=== PATIENT | female | born 1940 | race Caucasian/White ===

== ENCOUNTER 2017-06-15 07:00 | Outpatient (RCR) | payer MEDICARE, SELFPAY ==
--- NOTE | 2017-05-23 09:19 | HP.PTEVAL_ITS ---
Patient's Visit Information MOISES RAO is a 76 year old F referred to Physical Therapy by JYOTHI Yusuf.CMORRI with a diagnosis of Biceps Strain. Date of Evaluation: 05/23/17 Physical Therapist: Jenny Tavarez - Visit Plan Frequency: 2x /Week Duration: 4 Weeks Plan: Focus on scapular s/s and posture- update and revise HEP - Subjective Subjective: Fell Apr 24- hit her head and landed on her right arm- a long time ago she had popped the biceps off but they didnt do anything about it. [facility] and they didn't feel that she needed x-rays. Agg: overhead and behind, lifting something heavy Worst: 09/02 Best: 04/04 Eases: stop doing what she is doing. Pain diminishes immediatly. Sleep: disturbed- hard to get comfortable. Does not take Ibuprofen secondary to brain bleeds. Right hand dominate. Pain is located in the biceps/triceps described as dull and achy. Does not radiate past the elbow or into the neck. No increase in PARNELL , blurred vision, dizziness. no change in finger dexterity. No N/T. Comes to [facility] 6 times a week- TM and then the strength workout (pushups, plank, glut bridge , spider lunge, plank tap, squat, side lunge, squat jump, front lunge, single leg lift, reverse lunge, walkout). Patient is very active. PMHx: a-fib, brain bleeds Meds: Paxil, Simvastin, Fleconaid, Metroprolol - Objective Posture: FH, RS, increased kyphosis. Gait: no deviation noted. Palpation: tender along upper trap from the occiput to the tip of the acromion, along the medial border of the scapula, biceps, triceps and felt clicking with the biceps in the bicipital groove. ROM: cervical: WNL, Shoulder: Flexion: 160 degrees with pain, Abduction: 180 degrees with pain at end range. IR: WNL with pain at end range, ER: 60 degrees. Strength: Core: fair minus, Shoulder: 4/5 with pain in all directions. Elbow: 4+/5 with pain. Special Test: empty can: positive, Impingment: positive - Goals Goal 1:: Patient will be I with HEP and progression Goal Time Frame: 4-6 Weeks Goal 2:: Patient will demo full AROM of the right UE where deficit with 0/10 pain Goal Time Frame: 4-6 Weeks Goal 3:: patinet will maintain proper posture t/o tx session to demo increased scap s/s. Goal Time Frame: 4-6 Weeks - Rehabilitation Potential Physical Therapy Diagnosis: Patient presents with hypomobility- she has decreased painfree ROM, strength and muscular endurance leading to poor posture and increased pain with ADL's. Rehabilitation Potential: Fair - Anticipated Interventions Patient/Client Instruction: Educate patient on: Benefits of Fitness Program For the Purpose of:: To improve performance and independence with ADL's Therapeutic Exercise to Include: Strength training, Endurance training, Body mechanics, Postural training, Passive ROM, Active ROM, Scapular Strength/ Stabilization For the Purpose of:: To improve muscle performance and motor function TENS: Yes Cryotherapy (ice pack, ice massage): Yes Thermo therapy (hot pack): Yes Ultrasound (thermal/non thermal): Yes For the Purpose of:: To decrease pain Thank you for the opportunity to evaluate your patient. For Medicare and Medicare HMO plans, please review the plan of care and approve it. It will need to be FAXED BACK to us at [phone] for Medicare purposes. Please let me know if there are questions or concerns regarding this plan of care. Physician Signature: Date:
--- NOTE | 2017-06-15 07:18 | HP.PTDCSUM_ITS ---
HP - PT D/C Summary It has been my pleasure to treat MOISES RAO under orders from JYOTHI Yusuf, PA.CMORRI for the diagnosis of Biceps Strain for a total of 7 visit(s). Discharge Date: Please see the following information for a summary of their discharge status. - Subjective Subjective: Patient reports that she is doing great- very little pain and is happy about the exercises - Overall Improvement % Improvement: 100 - Objective Objective/Function: Posture: good throughout. rom:WNL in all planes. Palpation : not tender. Strength: Scap: fair plus, Shoulder: 4+/5 Elbow: 5/5 - Goals Goal 1:: Patient will be I with HEP and progression Goal Progress: Goal Met Goal 2:: Patient will demo full AROM of the right UE where deficit with 0/10 pain Goal Progress: Goal Met Goal 3:: patinet will maintain proper posture t/o tx session to demo increased scap s/s. Goal Progress: Goal Met - Plan Plan: Discharget to I HEP (UBE, mid row, lae, add, bilateral er, wall washes, jobes 3 ways) - D/C Information If there are questions or concerns regarding this patient's physical therapy, please feel free to call me at [phone]. Thank you for the referral of this patient. Sincerely, Jenny Tavarez
== END 2017-06-15 09:31 | disposition home or self-care (01) ==
LOC: PT 07:00
PROVIDERS: Family Provider Family Medicine; PCP Family Medicine; Visit Provider Physician Assistant Surgical
DX: S46.211D Strain of muscle, fascia and tendon of other parts of biceps, right arm, subsequent encounter (principal)
CPT/HCPCS: 97110; 97161; 97530

== ENCOUNTER → 2017-07-05 07:31 | Outpatient (CLI) | payer MEDICARE, SELFPAY ==
--- NOTE | 2017-07-05 07:36 | RAD_ITS ---
STUDY: X-RAY - RIGHT FOOT CLINICAL: Great toe pain, fall. TECHNIQUE: 3 view(s) of the foot. COMPARISON: None. FINDINGS: Normal talus, calcaneus, and tarsal bones. Normal visualized subtalar, talonavicular, calcaneocuboid, tarsal and tarsometatarsal articulations. Normal metatarsi. Normal metatarsophalangeal joint of the great toe. Normal tibial and fibular sesamoid bones. Normal interphalangeal joint of the great toe. Normal phalanges of the great toe. Normal second through fifth metatarsophalangeal joints. There is a nondisplaced fracture of the head and diaphysis of the first proximal phalanx. The soft tissue structures are unremarkable. RAD/Foot min 3 Views IMPRESSION: Nondisplaced fracture of the first proximal phalanx. Electronically Signed: Navi Garcia MD at 8:42 EDT Tel , Service support ,
== END ==
PROVIDERS: Family Provider Family Medicine; PCP Family Medicine; Visit Provider Physician Assistant
DX: S90.31XA Contusion of right foot, initial encounter (principal)
CPT/HCPCS: 73630

== ENCOUNTER → 2017-11-29 07:51 | Outpatient (CLI) | payer MEDICARE, SELFPAY | PROVIDERS: Family Provider Family Medicine; PCP Family Medicine; Visit Provider Family Medicine | DX: Z12.31 Encounter for screening mammogram for malignant neoplasm of breast (principal) | CPT/HCPCS: 77063; 77067 ==

== ENCOUNTER → 2018-04-01 09:58 | Outpatient (CLI) | payer MEDICARE, SELFPAY ==
[2018-04-01 12:04] LABS: Absolute Lymphocyte Count 2.02 X10^3/ul (0.83-4.51); Absolute Neutrophil Count 3.7 X10^3/uL (2.0-7.7); Anion Gap 8 (5-15); BUN 15 mg/dL (7-18); BUN/Creat Ratio 23.9 RATIO (10-20); Basophil# 0.03 X10^3/uL; Basophil% 0.5 % (0-1); Calcium,Total 8.8 mg/dL (8.5-10.1); Chloride 109 mmol/L (98-107); Cholesterol 180 mg/dL (200); Creatinine, Serum 0.63 mg/dL (0.55-1.02); EST Glomerular Filtration Rate 98 mL/min (>60); Eosinophil# 0.07 X10^3/uL; Eosinophils% 1.1 % (0-5); Est Glom Filt Rate - Afr Amer 118 mL/min (>60); Glucose 90 mg/dL (74-106); Hematocrit 39.4 % (37-47); Hemoglobin 12.5 g/dl (12.0-15.0); High Density Lipoprotein 59 mg/dL; Lymphocyte # 2.02 X10^3/ul (4.0); Lymphocyte % 31.5 % (19-41); Mean Corp Hgb Conc 31.7 g/gl (32-36); Mean Corpuscular Hgb 30.6 pg (27.0-32.0); Mean Corpuscular Volume 96.3 fL (81-99); Mean Platelet Vol. 9.3 fl (6.2-12.0); Monocyte# 0.56 X10^3/uL; Monocyte% 8.7 % (0-10); Neutrophil # 3.73 X10^3/uL (2.7-7.7); Platelet Count 299 K/mm3 (150-450); Potassium 4.5 mmol/L (3.5-5.1); RBC Distribution Width CV 13.2 % (11.6-14.6); RBC Distribution Width SD 45.5 fl (35.1-43.9); Red Blood Count 4.09 M/mm3 (4.2-5.4); Sodium Level 143 mmol/L (136-145); Triglycerides 134 mg/dL; Very Low Density Lipoprotein 27 mg/dL (5-40); White Blood Count 6.4 K/mm3 (4.4-11.0)
[2018-04-01 12:11] LABS: Vitamin D,25 Hydroxy 51.8 ng/mL (29.95-100.01)
[2018-04-01 12:13] LABS: POSITIVE COUNT NO; POSITIVE DIFFERENTIAL NO; POSITIVE MORPHOLOGY NO
== END ==
PROVIDERS: Family Provider Family Medicine; PCP Family Medicine; Visit Provider Family Medicine
DX: I48.91 Unspecified atrial fibrillation (principal); E55.9 Vitamin D deficiency, unspecified; E78.00 Pure hypercholesterolemia, unspecified
CPT/HCPCS: 36415; 80048; 80061; 82306; 85025

== ENCOUNTER → 2018-04-11 08:04 | Outpatient (CLI) | payer MEDICARE, SELFPAY ==
[2018-04-03 12:53] VITALS: BMI 21.9
--- NOTE | 2018-04-11 08:18 | BD_ITS ---
STUDY: DUAL ENERGY X-RAY ABSORPTIOMETRY / DXA REASON FOR EXAM: Female, 77 years old. The patient is postmenopausal. Loss of height. TECHNIQUE: Bone Mineral Density (BMD) measurements of lumbar spine and bilateral hips were obtained. COMPARISON: Comparison is made with prior examination dated September 06, 2011. FINDINGS: Lumbar Spine (L1-L4): g/cm2 (1.141) / T-score (-0.5) / Z-score (1.3) Findings are suggestive of normal bone density with a low fracture risk. Left Femur Total: g/cm2 (0.962) / T-score (-0.4) / Z-score (1.5) Left Femoral Neck: g/cm2 (1.007) / T-score (-0.2) / Z-score (1.8) Right Femur Total: g/cm2 (0.925) / T-score (-0.7) / Z-score (1.2) Right Femoral Neck: g/cm2 (1.016) / T-score (-0.2) / Z-score (1.8) The T-Scores on the most recent prior examination were: Lumbar Spine (L1-L4): There has been improvement of bone density since the previous examination. Left Femur Total: which represents an improvement of 2.6%. Right Femur Total: which represents an improvement of 0.7%. BD/Dexa Bone Density Study IMPRESSION: The patient is considered normal as outlined below according to World Matt Organization (WHO) criteria with a low fracture risk. There has been improvement of bone density since the previous examination. Reference Information: The T-score is the number of standard deviations above or below the standard which is normal for young adults at their peak bone mineral density. The World Health Organization (WHO) interprets the T-scores as follows: Above -1 Normal bone density Between -1 and -2.5 Osteopenia Equal to / or below -2.5 Osteoporosis As a practical clinical guideline, osteopenia may be graded as follows: Mild -1 through -1.5 Moderate -1.6 through -2.0 Severe -2.1 through -2.4 The Z-score is the number of standard deviations above or below age-matched controls. A Z-score of less than -1.5 would be considered abnormal. References: 1. NIH Osteoporosis and Related Bone Diseases http://www.osteo.org 2. International Society for Clinical Densitometry http://www.iscd.org 3. National Osteoporosis Foundation http://www.nof.org Electronically Signed: Surya Dexter MD at 8:57 EST Tel [phone], Service support ,
--- OUTSIDE RECORDS SUMMARY | 2018-06-15 20:43 | XMS RPT_ITS ---
:1940 Author Organization OHIP Support Name Relationship Address Phone RAO, BILL Unavailable Unavailable + R Unavailable Unavailable Unavailable PORT HADLOCK, BILL Unavailable [address] + [place] [address] R Unavailable Unavailable Unavailable PORT HADLOCK, BILL Unavailable [address] + [place] [address] R Unavailable Unavailable Unavailable PORT HADLOCK, BILL Unavailable [address] + [place] [address] R Unavailable Unavailable Unavailable PORT HADLOCK, BILL Unavailable [address] + [place] [address] R Unavailable Unavailable Unavailable PORT HADLOCK, BILL Unavailable [address] + [place] [address] R Unavailable Unavailable Unavailable PORT HADLOCK, BILL Unavailable [address] + [place] [address] R Unavailable Unavailable Unavailable PORT HADLOCK, BILL Unavailable [address] + [place] [address] R Unavailable Unavailable Unavailable PORT HADLOCK, BILL Unavailable [address] + [place] [address] R Unavailable Unavailable Unavailable [place] HAD[place], BILL Unavailable . + ., [place] . R Unavailable Unavailable Unavailable PORT HADLOCK, BILL Unavailable [address] + [place] [address] R Unavailable Unavailable Unavailable [place] HAD[place], BILL Unavailable . + ., [place] . R Unavailable Unavailable Unavailable Care Team Providers Name Role Phone Jose Figueroa Attending Unavailable Jose Figueroa Primary Care Unavailable Winter Yang Attending Unavailable Tj Torrez Attending Unavailable Jose Figueroa Referring Unavailable Jose Figueroa Primary Care Unavailable Tj Torrez Attending Unavailable Tj Torrez Referring Unavailable Jose Figueroa Primary Care Unavailable Kurt Robertson Attending Unavailable Jose Figueroa Referring Unavailable Jose Figueroa Attending Unavailable Henry, Jose Primary Care Unavailable Andrés Gregory Attending Unavailable Figueroa, Jose Referring Unavailable Figueroa, Jose Primary Care Unavailable Wyren, Andrés Attending Unavailable Wyles, Andrés Referring Unavailable Figueroa, Jose Primary Care Unavailable Ana, Maty Attending Unavailable Chicorelli, Maty Referring Unavailable Figueroa, Jose Primary Care Unavailable Chicorelli, Maty Attending Unavailable Figueroa, Jose Referring Unavailable Figueroa, Jose Primary Care Unavailable Ailyn, Buckner Attending Unavailable Figueroa, Jose Referring Unavailable Figueroa, Jose Attending Unavailable Figureoa, Jose Primary Care Unavailable PROBLEMS PROBLEMS DATE TYPE CONDITION / CODE ATTENDING STATUS SOURCE 04/11/2018 Unknown Z78.0 - Jose Figueroa Active [place] Asymptomatic Community menopausal state / Hospital Z78.0(ICD-10) Repository 04/03/2018 Unknown E78.5 - Ailyn, Buckner Active [place] Hyperlipidemia, Community unspecified / Hospital E78.5(ICD-10) Repository 04/03/2018 Unknown I48.0 - Paroxysmal Ailyn, Buckner Active [place] atrial Community fibrillation / Hospital I48.0(ICD-10) Repository 04/03/2018 Unknown E78.00 - Pure Ailyn, Kurt Active [place] hypercholesterolem Community ia, unspecified / Hospital E78.00(ICD-10) Repository 07/05/2017 Unknown S90.31XA - Andrés Gregory Active [place] Contusion of right [facility] foot, initial Hospital encounter / Repository S90.31XA(ICD-10) 08/07/2017 Unknown S46.211D - Strain Tj Torrez Active [place] of muscle, fascia Community and tendon of Hospital other parts of Repository biceps, right arm, subsequent encounter / S46.211D(ICD-10) PROCEDURES PROCEDURES No Procedure Records FoundRESULTS RESULTS DEXA BONE DENSITY Observed: 04/11/2018 Status: F Source: [place] STUDY 8:09 AM [facility] REPOSITORY [facility] Imaging Services [address] [place] [address] Dexa Bone Density Study MR#: [id number] Acct: [id number] Name: MOISES RAO Rep #: [id number] : 1940 F 77 From: Surya Dexter MD PCP: Jose Figueroa MD Status: REG CLI Study: Dexa Bone Density Study Date of Exam: 04/11/18 Exam# [id number] Ordering Dr: Jose Figueroa MD STUDY: DUAL ENERGY X-RAY ABSORPTIOMETRY / DXA REASON FOR EXAM: Female, 77 years old. The patient is postmenopausal. Loss of height. TECHNIQUE: Bone Mineral Density (BMD) measurements of lumbar spine and bilateral hips were obtained. COMPARISON: Comparison is made with prior examination dated September 06, 2011. FINDINGS: Lumbar Spine (L1-L4): g/cm2 (1.141) / T-score (-0.5) / Z-score (1.3) Findings are suggestive of normal bone density with a low fracture risk. Left Femur Total: g/cm2 (0.962) / T-score (-0.4) / Z- score (1.5) Left Femoral Neck: g/cm2 (1.007) / T-score (-0.2) / Z- score (1.8) Right Femur Total: g/cm2 (0.925) / T-score (-0.7) / Z- score (1.2) Right Femoral Neck: g/cm2 (1.016) / T-score (-0.2) / Z-score (1.8) The T-Scores on the most recent prior examination were: Lumbar Spine (L1-L4): There has been improvement of bone density since the previous examination. Left Femur Total: which represents an improvement of 2.6%. Right Femur Total: which represents an improvement of 0.7%. BD/Dexa Bone Density Study IMPRESSION: The patient is considered normal as outlined below according to World Matt Organization (WHO) criteria with a low fracture risk. There has been improvement of bone density since the previous examination. Reference Information: The T-score is the number of standard deviations above or below the standard which is normal for young adults at their peak bone mineral density. The World Health Organization (WHO) interprets the T-scores as follows: Above -1 Normal bone density Between -1 and -2.5 Osteopenia Equal to / or below -2.5 Osteoporosis As a practical clinical guideline, osteopenia may be graded as follows: Mild -1 through -1.5 Moderate -1.6 through -2.0 Severe -2.1 through -2.4 The Z-score is the number of standard deviations above or below age-matched controls. A Z-score of less than -1.5 would be considered abnormal. References: 1. NIH Osteoporosis and Related Bone Diseases http://www.osteo.org 2. International Society for Clinical Densitometry http://www.iscd.org 3. National Osteoporosis Foundation http://www.nof.org Electronically Signed: Surya Dexter MD at 8:57 EST Tel [phone], Service support , CC: Jose Figueroa MD Heat Treat Operator: Signed CARDIOLOGY VISIT Observed: 04/03/2018 Status: F Source: [place] REPORT 4:02 PM [facility] REPOSITORY [facility] [place] [address] OFFICE VISIT Date of Service: 04/03/18 MR#: [id number] Acct: [id number] Name: MOISES RAO Rep #: [id number] : 1940 Provider: Kurt Robertson MD Age/Sex: 77/F [place] [facility] Status: Signed HPI HPI Chief Complaint: Follow up Details: MOISES RAO, is a 77 F who presents to the office today for MOISES RAO, is a 77 F who presents to the office today for a follow-up visit. She is a lady with a history of paroxysmal atrial fibrillation who returns for follow-up visit. She is also had a history of 2 subdural hematomas requiring surgery which was spontaneous. She says that her heart rate appears to be doing much better now she has not had any dizziness or diaphoresis no near syncope or syncope no neck, jaw discomfort suggest angina. Occasionally when she is exercising she does feel a short paroxysm. She is able to feel these on occasion. She has had no other complaints. Her physical exam demonstrates clear lung ramirez regular rate and rhythm and no pedal edema her blood pressure is under excellent control. Intake Vital Signs04/03/18 Height 5 ft 1 in 04/03/18 Weight: 116 lb 04/03/18 Body Mass Index (BMI) 21.9 04/03/18 Blood Pressure 138/74 H 04/03/18 Blood Pressure Location Lt brachial Intake Visit Reasons: 6 M FU (pt r/s from 1-8) Electrotyper Required: No Accompanied by: none Is patient in pain?: No Allergies codeine Adverse Reaction (Intermediate, Verified 04/03/18 15:45) Nausea percocet Adverse Reaction (Intermediate, Uncoded 04/03/18 12:56) Nausea vicodin Adverse Reaction (Intermediate, Uncoded 04/03/18 12:56) Nausea Medications Paroxetine HCl [Paxil] 20 mg PO DAILY 11/26/14 [History Confirmed 04/03/18] Raloxifene HCl [Evista] 60 mg PO DAILY 11/26/14 [History Confirmed 04/03/18] Simvastatin [Zocor] 20 mg PO QHS 11/26/14 [History Confirmed 04/03/18] multivitamin tablet 1 tab PO QDAY 03/02/17 [History Confirmed 04/03/18] biotin 300 mcg tablet 1 mg PO QDAY 03/24/17 [History Confirmed 04/03/18] calcium citrate 250 mg tablet 250 mg PO BID tab 03/24/17 [History Confirmed 04/03/18] cholecalciferol (vitamin D3) 5,000 unit capsule 5,000 unit PO QDAY 03/27/17 [History Confirmed 04/03/18] metoprolol tartrate 25 mg tablet 25 mg PO BID #180 tab 07/23/17 [Rx Confirmed 04/03/18] flecainide 100 mg tablet 100 mg PO BID #180 tab 12/13/17 [Rx Confirmed 04/03/18] [facility] Medical History Paroxysmal atrial fibrillation (Chronic) Hyperlipidemia (Chronic) Subdural hematoma (Resolved) 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) Anxiety (Chronic) Depression (Chronic) Osteoporosis (Chronic) Other specified hypothyroidism (Chronic) Surgical History H/O craniotomy (Resolved 05/27/15) Social History Smoking Status: Never smoker alcohol intake: current substance use type: does not use ROS Const Const: Negative for fatigue, weakness, difficulty sleeping, frequent falls, excessive sweating or headache(s) Eyes Eyes: Negative for loss of peripheral vision, transient loss of vision, blurry vision, tunnel vision or double vision ENT ENT: Negative for headache(s), dizziness, Nosebleed/epistaxis or balance problems Cardio Chest Pain: No Palpitations: No Edema: None Muscle aches with walking: None Resp Respiratory: Negative for SOB with activity, SOB at rest, SOB orthopnea\SOB lying down, paroxysmal nocturnal dyspnea or Cough GI GI: Negative nausea, heartburn, black,tarry stools or vomiting : Negative for hematuria Musc Musc: Negative for balance problems, muscle aches/ myalgia, muscle weakness or joint pain Skin Skin: Negative non-healing lesions, unusual bruising or rash Neuro Neuro: Negative for weakness, frequent falls, headache(s), blurry vision, double vision, dizziness, lightheadedness, orthostatic symptoms, near syncope, syncope or lack of coordination [place] Hematologic/Lymphatic: Negative for easy bruising or easy bleeding Endo Endo: Negative for fatigue, excessive sweating or increased thirst/drinking Psych Psych: Negative for anxiety or depression Allergy Allergy/Immunology: Negative for hives, Negative for rash Cardiology Exam Const Appearance: cooperative, healthy appearing, well developed, well groomed and no acute distress Nutritional Appearance: well nourished and average body habitus Orientation: alert, awake and oriented x3 Head Head: normal to inspection, normocephalic and atraumatic Ears: hearing grossly normal bilaterally and external ears normal Nose: external nose normal, nasal mucous membranes and turbinates normal, nares normal, septum normal, no nasal discharge Face and Sinus: face symmetric Mouth: oral mucosae normal, tongue normal, oropharynx normal and moist mucous membranes Teeth and gingiva: dentition normal Throat: posterior oropharynx normal, tonsils normal and uvula midline Eyes General: appearance normal, both eyes and all related structures Eyelids: eyelids normal Conjunctivae: conjunctivae normal Pupils: PERRL, normal by confrontation and accommodation normal EOM: EOM intact bilaterally Neck Neck: normal visual inspection, trachea midline and no JVD JVD: +5 Carotids: normal carotid upstroke and bounding pulses Chest Chest inspection: normal inspection of the chest, symmetric chest movement and normal respiratory effort Auscultation: Bilateral: Clear to Auscultation Cardio Palpation: normal PMI Rate: regular rate Rhythm: regular rhythm Heart sounds: S1 normal, S2 normal and normal, physiologic split S2; negative rub, gallop or murmur GI GI: normal to inspection, soft, no hepatosplenomegaly and bowel sounds present Neuro General: alert, awake, oriented x3, no focal sensory deficit, gait normal and moves all extremities Skin Skin: no rashes or lesions noted Extremities Pulses: Normal: Right Femoral Pulse, Left Femoral Pulse, Right Dorsalis Pedis Pulse, Left Dorsalis Pedis Pulse, Right Posterior Tibial Pulse, Left Posterior Tibial Pulse, Right Radial Pulse, Left Radial Pulse Lower Extremity Edema: None: Bilateral Musculoskel Musculoskeletal: No joint tenderness Psych Psychological: normal affect Assessment AND Plan 1. Paroxysmal atrial fibrillation I48.0 Plan She does have a history of paroxysmal atrial fibrillation but is maintaining sinus rhythm most of the time her electrocardiogram here today demonstrates a sinus rhythm with a rate of 46 bpm. No changes are noted my recommendation is to continue the same without making any other changes or recommendations. Orders Orders: 2. Pure hypercholesterolemia E78.00 Plan She does have a history of hyperlipidemia her most recent lipid profile was excellent with a total cholesterol 180, LDL of 94 and HDL of 59. She will continue the same medications with no changes. 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) Coding Level of Care Code Off vis,est,level 3 Diagnoses Paroxysmal atrial fibrillation I48.0 Pure hypercholesterolemia E78.00 Hyperlipidemia type: pure hypercholesterolemia Coding Level of Care Code Off vis,est,level 3 Diagnoses Paroxysmal atrial fibrillation I48.0 Pure hypercholesterolemia E78.00 Hyperlipidemia type: pure hypercholesterolemia Supplemental Info Supplemental Information Labs LDL Cholesterol 94 mg/dL (0-130) 04/01/18 HDL Cholesterol 59 mg/dL (40-) 04/01/18 Triglycerides 134 mg/dL (-199) 04/01/18 VLDL Cholesterol 27 mg/dL (5-40) 04/01/18 04/03/18 1602 <Electronically signed by Kurt Robertson MD> Date Kurt Sherwood Signature: Date (if applicable) CC: Jose Figueroa MD BASIC METABOLIC Collected: 04/01/2018 Status: F Source: [place] PROFILE (BMP) 10:02 AM [facility] REPOSITORY TYPE CODE TESTS RESULT OUT OF RANGE REFERENCE UNITS LAB L501.0100 74-106 mg/dL Normal GLU 90 Result Comment: Please note revised GLUCOSE reference range effective 2017. LAB L501.1000 7-18 mg/dL Normal BUN 15 LAB L501.1100 0.55-1.02 mg/dL Normal CREAT,SERUM 0.63 Result Comment: The validity of the calculated GFR AND GFRAA in patients over 70 years has not been determined. Clinical correlation is essential. LAB L501.1110 >60 mL/min Normal EST GFR 98 Result Comment: Non- GFR Calc LAB L501.1115 >60 mL/min Normal EST GFR - AA 118 Result Comment: GFR Calc LAB L501.1300 10-20 RATIO High BUN/CRE 23.9 LAB L501.2200 8.5-10.1 mg/dL CA Normal 8.8 LAB L501.5300 136-145 mmol/L NA Normal 143 LAB L501.5600 3.5-5.1 mmol/L K Normal 4.5 LAB L501.5900 98-107 mmol/L High CL 109 LAB L501.6100 21.0-32.0 mmol/L Normal CO2 26.0 LAB L501.6200 5-15 Normal GAP 8 Performed By: #### L500.2500, L500.4100, L506.1000, L100.0100 #### [facility] [address] [place], [place], [id number] LIPID PROFILE Collected: 04/01/2018 Status: F Source: [place] 10:02 AM [facility] REPOSITORY TYPE CODE TESTS RESULT OUT OF RANGE REFERENCE UNITS LAB L501.4900 200 mg/dL Normal CHOL 180 Result Comment: <200 mg/dL Desirable 200-240 mg/dL Borderline >240 mg/dL High Risk LAB L501.5000 mg/dL Normal TRIG 134 Result Comment: The drugs N-Acetylcysteine and Metamizole may falsely depress this assay. Serum Triglycerides Reference Interval Normal <150 mg/dL Borderline high 150 - 199 mg/dL High 200 - 499 mg/dL Very High > or = 500 mg/dL LAB L501.6400 mg/dL Normal HDL 59 Result Comment: The drugs N-Acetylcysteine and Metamizole may falsely depress this assay. Reference Range HDL <40 mg/dL Low HDL Cholesterol HDL >or= 60 mg/dL High HDL Cholesterol LAB L501.6500 0-130 mg/dL Normal LDL 94 LAB L501.6600 5-40 mg/dL Normal VLDL 27 Performed By: #### L500.2500, L500.4100, L506.1000, L100.0100 #### [facility] [address] [place], [address] VITAMIN D,25 HYDROXY Collected: 04/01/2018 Status: F Source: [place] 10:02 AM [facility] REPOSITORY TYPE CODE TESTS RESULT OUT OF RANGE REFERENCE UNITS LAB L506.1000 29.95-100.01 ng/mL Normal Vitamin D 51.8 25-OH Result Comment: Vitamin D 25(OH) Status Range Deficiency <20 ng/mL (50nmol/L) Insuffciency 20 - 30 ng/mL (50 - 75 nmol/L) Sufficiency 30 - 100 ng/mL (75 - 250 nmol/L) Toxicity >100 ng/mL (>250 nmol/L) Performed By: #### L500.2500, L500.4100, L506.1000, L100.0100 #### [facility] [address] [place], [address] CBC W/DIFF, AUTOMATED Collected: 04/01/2018 Status: F Source: [place] 10:02 AM [facility] REPOSITORY TYPE CODE TESTS RESULT OUT OF RANGE REFERENCE UNITS LAB L100.1000 4.4-11.0 K/mm3 Normal WBC 6.4 LAB L100.1200 4.2-5.4 M/mm3 Low RBC 4.09 LAB L100.1300 12.0-15.0 g/dl Normal HGB 12.5 LAB L100.1400 37-47 % Normal HCT 39.4 LAB L100.1500 81-99 fL Normal MCV 96.3 LAB L100.1600 27.0-32.0 pg Normal MCH 30.6 LAB L100.1700 32-36 g/gl Low MCHC 31.7 LAB L100.1810 11.6-14.6 % Normal RDW CV 13.2 LAB L100.1820 35.1-43.9 fl High RDW SD 45.5 LAB L100.1900 150-450 K/mm3 Normal PLT 299 LAB L100.2000 6.2-12.0 fl Normal MPV 9.3 LAB L100.2100 47-70 % Normal NEUT% 58.0 LAB L100.2200 19-41 % Normal LY% 31.5 LAB L100.2300 0-10 % Normal MONO% 8.7 LAB L100.2400 0-5 % Normal EO% 1.1 LAB L100.2500 0-1 % Normal BASO% 0.5 LAB L100.2550 0.0-0.9 % Normal IM GRAN % 0.200 Result Comment: IG% - Immature Granulocytes (promyelocytes, myelocytes and metamyelocytes) > 1% indicates that a LEFT SHIFT is Present. LAB L100.2620 2.0-7.7 X10 3/uL Normal Absolute Neut 3.7 LAB L100.2720 0.83-4.51 X10 3/ul Normal Absolute Lymph 2.02 Performed By: #### L500.2500, L500.4100, L506.1000, L100.0100 #### [facility] [address] [place], [address] SCREENING MAMM (CAD), Observed: 11/29/2017 Status: F Source: [place] BIL 7:52 AM [facility] REPOSITORY [facility] Imaging Services [address] [place] [address] SCREENING MAMM (CAD), BILAT MR#: [id number] Acct: [id number] Name: MOISES RAO Rep #: [id number] : 1940 F 77 From: Surya Dexter MD PCP: Jose Figueroa MD Status: REG CLI Study: SCREENING MAMM (CAD), BILAT Date of Exam: 11/29/17 Exam# [id number] Ordering Dr: Jose Figueroa MD MAMMOGRAPHY - BILATERAL SCREENING REASON FOR EXAM: Female, 77 years old. Routine annual screening examination. PERTINENT HISTORY: Non-contributory. Prior left excisional breast biopsy and bilateral stereotactic breast biopsies. TECHNIQUE: Digital bilateral breast jeancarlos (3D mammographic acquisition) in the CC and MLO projections. 2-D mediolateral oblique (MLO) and craniocaudad (CC) views of both breasts were obtained. CAD: Full Field Digital Mammography with Computer Added Detection was performed. COMPARISON: Comparison is made with prior examination November 14, 2016 and November 11, 2015. FINDINGS: Breast Composition: The breasts are heterogeneously dense, which may obscure small masses. There are no dominant masses or suspicious calcifications. Stable small benign-appearing bilateral axillary lymph nodes. No other significant abnormalities are identified. There has been no significant change since the prior study. BI/SCREENING MAMM (CAD), BILAT IMPRESSION: Stable bilateral screening mammogram. Yearly follow-up mammogram recommended. (A) ASSESSMENT CATEGORY: BIRADS Category 2: Benign. A letter regarding these results will be sent to the patient by the facility within 30 days. Approximately 10% of breast cancers are not detected by mammography. A normal mammogram should not delay biopsy of a clinically suspicious abnormality. [id number] Electronically Signed: Surya Dexter MD at 9:06 EDT Tel [phone], Service support , CC: Jose Figueroa MD Heat Treat Operator: Signed CARDIOLOGY VISIT Observed: 09/25/2017 Status: F Source: [place] REPORT 9:18 AM [facility] REPOSITORY [facility] [address] [place] [address]. [address] [place] [address] OFFICE VISIT Date of Service: 09/25/17 MR#: [id number] Acct: [id number] Name: MOISES RAO Rep #: [id number] : 1940 Provider: Kurt Robertson MD Age/Sex: 77/F Location: [facility] Status: Signed [facility] Chief Complaint: Follow up Details: MOISES RAO, is a 77 F who presents to the office today for a follow-up visit. She is a lady with a history of paroxysmal atrial fibrillation who returns for follow-up visit. She is also had a history of 2 subdural hematomas requiring surgery which was spontaneous. She says that her heart rate appears to be doing much better now she has not had any dizziness or diaphoresis no near syncope or syncope no neck, jaw discomfort suggest angina. Occasionally when she is exercising she does feel a short paroxysm. She has had no other complaints. Her physical exam demonstrates clear lung ramirez regular rate and rhythm and no pedal edema her blood pressure is under excellent control. Intake Vital Signs09/25/17 Height 5 ft 1 in 09/25/17 Weight: 112 lb 09/25/17 Body Mass Index (BMI) 21.1 09/25/17 Blood Pressure 114/72 09/25/17 Blood Pressure Location Lt brachial Intake Visit Reasons: 6 M FU Electrotyper Required: No Accompanied by: none Is patient in pain?: No Allergies codeine Adverse Reaction (Intermediate, Verified 09/25/17 09:04) Nausea percocet Adverse Reaction (Intermediate, Uncoded 09/24/17 08:39) Nausea vicodin Adverse Reaction (Intermediate, Uncoded 09/24/17 08:39) Nausea Medications Paroxetine HCl [Paxil] 20 mg PO DAILY 11/26/14 [History Confirmed 09/25/17] Raloxifene HCl [Evista] 60 mg PO DAILY 11/26/14 [History Confirmed 09/25/17] Simvastatin [Zocor] 20 mg PO QHS 11/26/14 [History Confirmed 09/25/17] flecainide 100 mg tablet 100 mg PO BID tab 03/02/17 [History Confirmed 09/25/17] multivitamin tablet 1 tab PO QDAY 03/02/17 [History Confirmed 09/25/17] oxybutynin chloride ER 5 mg tablet,extended release 24 hr 10 mg PO QDAY tab 03/02/17 [History Confirmed 09/25/17] biotin 300 mcg tablet 1 mg PO QDAY 03/24/17 [History Confirmed 09/25/17] calcium citrate 250 mg tablet 250 mg PO BID tab 03/24/17 [History Confirmed 09/25/17] cholecalciferol (vitamin D3) 5,000 unit capsule 5,000 unit PO QDAY 03/27/17 [History Confirmed 09/25/17] metoprolol tartrate 25 mg tablet 25 mg PO BID #180 tab 07/23/17 [Rx Confirmed 09/25/17] Ejection fraction %: 60 to 64 [facility] Medical History Other detention (current) drug therapy (Chronic) Paroxysmal atrial fibrillation (Chronic) Hyperlipidemia (Chronic) 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) Anxiety (Chronic) Depression (Chronic) Osteoporosis (Chronic) Other specified hypothyroidism (Chronic) Surgical History Brain bleed (Chronic) Social History Smoking Status: Never smoker alcohol intake: current substance use type: does not use ROS Const Const: Negative for fatigue, weakness, night sweats, excessive sweating, frequent falls, headache(s) or daytime sleepiness Eyes Eyes: Negative for loss of peripheral vision, transient loss of vision, blind spots, double vision or blurry vision ENT ENT: Positive for balance problems; negative for headache(s), dizziness, Nosebleed/epistaxis, tongue swelling or lip swelling Cardio Chest Pain: No Palpitations: No Edema: None Muscle aches with walking: None Resp Respiratory: Negative for SOB at rest, SOB orthopnea\SOB lying down, Cough, paroxysmal nocturnal dyspnea or SOB with activity GI GI: Negative nausea, vomiting, heartburn, black,tarry stools or bright, red blood in stools : Negative for hematuria Musc Musc: Positive for balance problems; negative for muscle aches/ myalgia, muscle weakness or joint pain Skin Skin: Negative non-healing lesions, unusual bruising or rash Neuro Neuro: Negative for weakness, frequent falls, headache(s), double vision, dizziness, lightheadedness, orthostatic symptoms, blurry vision or lack of coordination [place] Hematologic/Lymphatic: Negative for easy bruising or easy bleeding Endo Endo: Negative for fatigue, excessive sweating, cold intolerance, heat intolerance, increased thirst/drinking or hair loss Psych Psych: Negative for anxiety or depression Allergy Allergy/Immunology: Negative for throat swelling, Negative for tongue swelling, Negative for hives, Negative for rash, Negative for lip swelling Cardiology Exam Const Appearance: cooperative, healthy appearing, well developed, well groomed and no acute distress Nutritional Appearance: well nourished and average body habitus Orientation: alert, awake and oriented x3 Head Head: normal to inspection, normocephalic and atraumatic Ears: hearing grossly normal bilaterally and external ears normal Nose: external nose normal, nasal mucous membranes and turbinates normal, nares normal, septum normal, no nasal discharge Face and Sinus: face symmetric Mouth: oral mucosae normal, tongue normal, oropharynx normal and moist mucous membranes Teeth and gingiva: dentition normal Throat: posterior oropharynx normal, tonsils normal and uvula midline Eyes General: appearance normal, both eyes and all related structures Eyelids: eyelids normal Conjunctivae: conjunctivae normal Pupils: PERRL, normal by confrontation and accommodation normal EOM: EOM intact bilaterally Neck Neck: normal visual inspection, trachea midline and no JVD JVD: +5 Carotids: normal carotid upstroke and bounding pulses Chest Chest inspection: normal inspection of the chest, symmetric chest movement and normal respiratory effort Auscultation: Bilateral: Clear to Auscultation Cardio Palpation: normal PMI Rate: regular rate Rhythm: regular rhythm Heart sounds: S1 normal, S2 normal and normal, physiologic split S2; negative rub, gallop or murmur GI GI: normal to inspection, soft, no hepatosplenomegaly and bowel sounds present Neuro General: alert, awake, oriented x3, no focal sensory deficit, gait normal and moves all extremities Skin Skin: no rashes or lesions noted Extremities Pulses: Normal: Right Femoral Pulse, Left Femoral Pulse, Right Dorsalis Pedis Pulse, Left Dorsalis Pedis Pulse, Right Posterior Tibial Pulse, Left Posterior Tibial Pulse, Right Radial Pulse, Left Radial Pulse Lower Extremity Edema: None: Bilateral Musculoskel Musculoskeletal: No joint tenderness Psych Psychological: normal affect Assessment AND Plan 1. Paroxysmal atrial fibrillation I48.0 Plan She does have a history of paroxysmal atrial fibrillation which appears well-controlled on the current medical therapy. My recommendation at this time is to continue the beta-liza at the same dose as well as the flecainide. I will like to see her again in approximately 6 months and obtain electrocardiogram. 2. Pure hypercholesterolemia E78.00 Plan She does have a history of hyperlipidemia and is on low intensity statin which appears to be tolerating well. I like us to obtain a lipid profile at some point. Thank you for allowing me to participate in the care of your patient. 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) Coding Level of Care Code Off vis,est,level 3 Diagnoses Paroxysmal atrial fibrillation I48.0 Pure hypercholesterolemia E78.00 Hyperlipidemia type: pure hypercholesterolemia Coding Level of Care Code Off vis,est,level 3 Diagnoses Paroxysmal atrial fibrillation I48.0 Pure hypercholesterolemia E78.00 Hyperlipidemia type: pure hypercholesterolemia 09/25/17 0918 <Electronically signed by Kurt Robertson MD> Date Kurt Robertson MD Cosigner Signature: Date (if applicable) CC: Jose Figueroa MD ORTHOPEDIC VISIT Observed: 07/12/2017 Status: F Source: [place] REPORT 3:55 PM [facility] REPOSITORY [facility] Orthopaedics AND Sports Medicine [address] [place] [address] OFFICE VISIT Date of Service: 07/12/17 MR#: [id number] Acct: [id number] Name: MOISES RAO Rep #: [id number] : 1940 Provider: Maty Perez DO Age/Sex: 76/F [place] [facility] [place]: Signed Intake Vital Signs07/12/17 Weight: 119 lb Intake Visit Reasons: RIGHT FOOT Is patient in pain?: Yes Pain scale (1-10): 2 Allergies codeine Adverse Reaction (Verified 07/12/17 08:53) Nausea vicodin Allergy (Severe, Uncoded 07/05/17 06:51) Nausea percocet Allergy (Intermediate, Uncoded 07/05/17 06:51) Nausea Medications Paroxetine HCl [Paxil] 20 mg PO DAILY 11/26/14 [History Confirmed 07/12/17] Raloxifene HCl [Evista] 60 mg PO DAILY 11/26/14 [History Confirmed 07/12/17] Simvastatin [Zocor] 20 mg PO QHS 11/26/14 [History Confirmed 07/12/17] Metoprolol Tartrate [Lopressor (beta liza)] 25 mg PO BID #60 tab 11/27/14 [Rx Confirmed 07/12/17] flecainide 100 mg tablet 100 mg PO BID tab 03/02/17 [History Confirmed 07/12/17] multivitamin tablet 1 tab PO QDAY 03/02/17 [History Confirmed 07/12/17] oxybutynin chloride ER 5 mg tablet,extended release 24 hr 10 mg PO QDAY tab 03/02/17 [History Confirmed 07/12/17] potassium 99 mg tablet 99 mg PO QDAY 03/02/17 [History Confirmed 07/12/17] biotin 300 mcg tablet 1 mg PO QDAY 03/24/17 [History Confirmed 07/12/17] calcium citrate 250 mg tablet 250 mg PO BID tab 03/24/17 [History Confirmed 07/12/17] cholecalciferol (vitamin D3) 5,000 unit capsule 5,000 unit PO QDAY 03/27/17 [History Confirmed 07/12/17] clindamycin HCl 300 mg capsule 300 mg PO TID #30 cap 07/05/17 [Rx Confirmed 07/12/17] PFSH Medical History 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 She states that she slipped down her stairs while carrying laundry on 06/30/17. [facility] where she had xrays which showed a great toe fracture. She has been nikki taping her toe since which is helpful. She is able to wear tennis shoes with minimal pain. She is not taking any pain medications. ROS Const Reports system reviewed and no additional complaints, except as docu Eyes Reports system reviewed and no additional complaints, except as docu ENT Reports system reviewed and no additional complaints, except as docu Card Reports system reviewed and no additional complaints, except as docu Resp Reports system reviewed and no additional complaints, except as docu GI Reports system reviewed and no additional complaints, except as docu Reports system reviewed and no additional complaints, except as docu Musc Reports joint pain Skin/Breast Reports system reviewed and no additional complaints, except as docu Neuro Yes system reviewed and no additional complaints, except as docu Psych Reports system reviewed and no additional complaints, except as docu Endo Reports system reviewed and no additional complaints, except as docu Ortho Exam Right Ankle Skin/Wound: Yes Soft Tissue Swelling, healing well and Ecchymosis Contralateral Normal: Yes Exam: present TTP FX site ROM: none Pain with ROM Sensation: Deep Peroneal Nerve: I, Superficial Peroneal Nerve: I, Tibial Nerve: I, Sural Nerve: I, Saphenous Nerve: I Assessment AND Plan 1. Closed displaced fracture of proximal phalanx of right great toe, initial encounter S92.411A Plan X-rays were reviewed. There is an intra articular fracture of the phalanx of 1st toes and hammer toe evidence of the second toe. Educted on the fracture care for her injury is hard soled shoe but since has returned to most normal activities she can continue. 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 Her hammer toe can be treated if it bothers her. Wrap it if she finds comfort with that, elevate it when possible and work on rom. Ice as needed, but it will likely be a little bigger than the other and she can have healing for up to a year. Follow up as needed or sooner if pain, swelling, numbness or associated symptoms, or concerns develop. All questions answered. Patient in agreement of plan. Coding Level of Care Code Off vis,new,level 3 Diagnoses Closed displaced fracture of proximal phalanx of right great toe, initial encounter S92.411A Encounter type: initial encounter Fracture alignment: displaced 07/12/17 6843 <Electronically signed by Maty Chicorelli DO> Date Maty Ana DO Nehemiasigner Signature: Date (if applicable) CC: URGENT CARE VISIT Observed: 07/05/2017 Status: F Source: [place] REPORT 9:01 AM [facility] REPOSITORY [facility] [address] [place] [address] [address] [place] [address] OFFICE VISIT Date of Service: 07/05/17 MR#: [id number] Acct: [id number] Name: MOISES RAO Rep #: [id number] : 1940 Provider: Andrés ROE Age/Sex: 76/F Location: [facility] [place] Status: Signed Intake Vital Signs07/05/17 Height 5 ft 1 in 07/05/17 Weight: 124 lb 07/05/17 Body Mass Index (BMI) 23.4 07/05/17 Blood Pressure 104/68 Intake Visit Reasons: Foot Pain Chief Complaint: Right great toe and dorsal foot pain Electrotyper Required: No Is patient in pain?: Yes Allergies codeine Adverse Reaction (Verified 07/05/17 06:51) Nausea vicodin Allergy (Severe, Uncoded 07/05/17 06:51) Nausea percocet Allergy (Intermediate, Uncoded 07/05/17 06:51) Nausea Medications Paroxetine HCl [Paxil] 20 mg PO DAILY 11/26/14 [History Confirmed 07/05/17] Raloxifene HCl [Evista] 60 mg PO DAILY 11/26/14 [History Confirmed 07/05/17] Simvastatin [Zocor] 20 mg PO QHS 11/26/14 [History Confirmed 07/05/17] Metoprolol Tartrate [Lopressor (beta liza)] 25 mg PO BID #60 tab 11/27/14 [Rx Confirmed 07/05/17] flecainide 100 mg tablet 100 mg PO BID tab 03/02/17 [History Confirmed 07/05/17] multivitamin tablet 1 tab PO QDAY 03/02/17 [History Confirmed 07/05/17] oxybutynin chloride ER 5 mg tablet,extended release 24 hr 10 mg PO QDAY tab 03/02/17 [History Confirmed 07/05/17] potassium 99 mg tablet 99 mg PO QDAY 03/02/17 [History Confirmed 07/05/17] biotin 300 mcg tablet 1 mg PO QDAY 03/24/17 [History Confirmed 07/05/17] calcium citrate 250 mg tablet 250 mg PO BID tab 03/24/17 [History Confirmed 07/05/17] cholecalciferol (vitamin D3) 5,000 unit capsule 5,000 unit PO QDAY 03/27/17 [History Confirmed 07/05/17] clindamycin HCl 300 mg capsule 300 mg PO TID #30 cap 07/05/17 [Rx Confirmed 07/05/17] [facility] Medical History 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) Paroxysmal atrial fibrillation (Chronic) HLD (hyperlipidemia) (Chronic) Hyperlipidemia (Chronic) 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 Patient states tripping falling down steps hyperflexing causing trauma to the dorsal aspect of her right foot as well as right great toe. Since the time of the injury patient has attempted to nikki tape her right great toe to her right second toe and it is always a result because blister formation erythema and trace swelling to the dorsal aspect of her right great toe. She notes no complaints of fever, chills, sweats, though does note localized discomfort which is aggravated to touch and with ambulation. She has no prior history of injuries or surgeries to the same. On the date of the injury she also states hitting her right temporal aspect of her head though noting no loss of consciousness lightheadedness dizziness or headaches at the time of the injury or since. No other associated symptoms, no other alleviating or aggravating. ROS Const Constitutional: No excessive sweating, fever(s), night sweats, headache(s), fatigue or chills Eyes Eyes: No change in vision ENT ENT: No abnormal hearing, ear pain, ear discharge, ear pressure, hearing loss, post nasal drip, sinus pressure or headache(s) Resp Respiratory: No shortness of breath Cardio Cardiology: No excessive sweating, chest pain at rest, chest pain with exertion, shortness of breath, dyspnea on exertion, irregular heart rhythm, generalized swelling or leg pain with exertion Gastro GI: No abdominal pain Musc Musculoskeletal: Positive for limited range of motion (Right great toe); no joint pain or back pain Skin Skin: Positive for redness (Dorsal right great toe with trace swelling and closed blister); no rash Neuro Neurology: No abnormal hearing, abnormal speech, abnormal movements or headache(s) Endo Endocrine: No excessive sweating, change in body appearance, cold intolerance, heat intolerance or fatigue Aller/Imm Allergy/Immunologic: No food intolerance Tremayne/Lymp Hematologic/Lymphatic: No easy bruising Exam Const General: cooperative, healthy appearing, no acute distress, comfortable, well groomed Nutritional Appearance: average body habitus Orientation: alert, awake, oriented x3 HENMT Head: normal to inspection, no palpable skull fracture, normocephalic, atraumatic Ears: hearing grossly normal bilaterally Nose: external nose normal Chest Chest palpation AND inspection: normal inspection of the chest Resp Effort AND Inspection: normal respiratory effort, able to speak in complete sentences, symmetric chest movement Cardio Rate: regular rate Pulses: radial pulses present Skin General: no rashes or lesions noted, erythema (With close blister to dorsal aspect right great toe and trace swelling) Neuro General: alert, awake, oriented x3, gait normal Cognition: normal cognition Speech: speech normal Gait: normal gait Motor: muscle tone normal throughout Sensory Exam: no sensory deficits noted Extrem General: normal capillary refill, normal exam except as noted (Right great toe IPJ tenderness to palpation; see x-ray and skin exam) Psych Appearance: grossly normal Mental Status: mental status grossly normal Mood: congruent mood Affect: normal affect Speech and Movement: speech and movement normal Attitude: cooperative Thought Process: normal Thought Content: normal Judgment: judgment good Assessment AND Plan Problems 1. Closed fracture of proximal phalanx of right great toe S92.411A 2. Cellulitis of great toe, right L03.031 Plan Reapplied nikki tape right great toe with Covan before sending patient to x-ray; after x-ray obtained patient stated she had to return home immediately to assist her therefore was not able to review radiographs with her in the clinic today. Radiologist's interpretation of radiographs was reviewed with the patient by phone by our nursing staff today. Nursing inform patient she may return to the clinic to obtain a postop shoe to assist with symptoms until she is further evaluated by podiatry or orthopedics. Clindamycin as prescribed today. Skin care as instructed today. Follow-up with the [facility] on an as-needed basis only. This note was generated with [employer] software. It may contain incorrect words, spelling, and punctuation that were not noted in checking the note before signing. Orders Orders: Medications New: Coding Level of Care Code Off vis,new,level 3 Diagnoses Closed fracture of proximal phalanx of right great toe S92.411A Cellulitis of great toe, right L03.031 07/05/17 0901 <Electronically signed by Andrés ROE> Date Andrés ROE Cosigner Signature: Date (if applicable) CC: FOOT MIN 3 VIEWS Observed: 07/05/2017 Status: F Source: [place] 7:36 AM [facility] REPOSITORY [facility] Imaging Services [address] [place] [id number] Foot min 3 Views MR#: [id number] Acct: [id number] Name: MOISES RAO Rep #: [id number] : 1940 F 76 From: Navi Garcia MD PCP: Jose Figueroa MD Status: REG CLI Study: Foot min 3 Views Date of Exam: 07/05/17 Exam# [id number] Ordering Dr: Andrés Gregory STUDY: X-RAY - RIGHT FOOT CLINICAL: Great toe pain, fall. TECHNIQUE: 3 view(s) of the foot. COMPARISON: None. FINDINGS: Normal talus, calcaneus, and tarsal bones. Normal visualized subtalar, talonavicular, calcaneocuboid, tarsal and tarsometatarsal articulations. Normal metatarsi. Normal metatarsophalangeal joint of the great toe. Normal tibial and fibular sesamoid bones. Normal interphalangeal joint of the great toe. Normal phalanges of the great toe. Normal second through fifth metatarsophalangeal joints. There is a nondisplaced fracture of the head and diaphysis of the first proximal phalanx. The soft tissue structures are unremarkable. RAD/Foot min 3 Views IMPRESSION: Nondisplaced fracture of the first proximal phalanx. 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 [place], [place] [address] Fax REHABILITATION SERVICES DISCHARGE SUMMARY MR#: [id number] Acct: [id number] Name: MOISES RAO Rep #: [id number] : 1940 76 From: Jenny Tavarez DPT Referring Dr.: Tj ROE Status: REG RCR Insurance: [employer] [facility] SELF PAY INSURANCE HP - PT D/C Summary It has been my pleasure to treat MOISES RAO under orders from JYOTHI Yusuf, PA.CMORRI for the diagnosis of Biceps Strain for a total of 7 visit(s). Discharge Date: Please see the following information for a summary of their discharge status. - Subjective Subjective: Patient reports that she is doing great- very little pain and is happy about the exercises - Overall Improvement % Improvement: 100 - Objective Objective/Function: Posture: good throughout. rom:WNL in all planes. Palpation: not tender. Strength: Scap: fair plus, Shoulder: 4+/5 Elbow: 5/5 - Goals Goal 1:: Patient will be I with HEP and progression Goal Progress: Goal Met Goal 2:: Patient will demo full AROM of the right UE where deficit with 0/10 pain Goal Progress: Goal Met Goal 3:: patinet will maintain proper posture t/o tx session to demo increased scap s/s. Goal Progress: Goal Met - Plan Plan: Discharget to I HEP (UBE, mid row, lae, add, bilateral er, wall washes, jobes 3 ways) - D/C Information If there are questions or concerns regarding this patient's physical therapy, please feel free to call me at [phone]. Thank you for the referral of this patient. Sincerely, Jenny Tavarez <Electronically signed by Jenny CLARKT> 06/15/17 0718 CC: Tj ROE; Jose Figueroa MD ELR Signed INITAL EVALUATION (1) Observed: 05/23/2017 Status: F Source: [place] - PT 9:19 AM [facility] REPOSITORY [facility] Physical Therapy [facility] [address] [place] [address]. [address] [place] [address] Fax REHABILITATION SERVICES INITIAL EVALUATION MR#: [id number] Acct: [id number] Name: MOISES RAO Rep #: [id number] : 1940 76 From: Jenny Tavarez DPT Referring Dr.: Tj ROE Status: REG RCR Insurance: [facility] SELF [facility]Y INSURANCE Patient's Visit Information MOISES RAO is a 76 year old F referred to Physical Therapy by JYOTHI Yusuf PA.CMORRI with a diagnosis of Biceps Strain. Date of Evaluation: 05/23/17 Physical Therapist: Jenny Tavarez - Visit Plan Frequency: 2x /Week Duration: 4 Weeks Plan: Focus on scapular s/s and posture- update and revise HEP - Subjective Subjective: Fell Apr 24- hit her head and landed on her right arm- a long time ago she had popped the biceps off but they didnt do anything about it. [facility] and they didn't feel that she needed x-rays. Agg: overhead and behind, lifting something heavy Worst: 09/02 Best: 04/04 Eases: stop doing what she is doing. Pain diminishes immediatly. Sleep: disturbed- hard to get comfortable. Does not take Ibuprofen secondary to brain bleeds. Right hand dominate. Pain is located in the biceps/triceps described as dull and achy. Does not radiate past the elbow or into the neck. No increase in PARNELL, blurred vision, dizziness. no change in finger dexterity. No N/T. Comes to [facility] 6 times a week- TM and then the strength workout (pushups, plank, glut bridge, spider lunge, plank tap, squat, side lunge, squat jump, front lunge, single leg lift, reverse lunge, walkout). Patient is very active. PMHx: a-fib, brain bleeds Meds: Paxil, Simvastin, Fleconaid, Metroprolol - Objective Posture: FH, RS, increased kyphosis. Gait: no deviation noted. Palpation:tender along upper trap from the occiput to the tip of the acromion, along the medial border of the scapula, biceps, triceps and felt clicking with the biceps in the bicipital groove. ROM: cervical: WNL, Shoulder: Flexion: 160 degrees with pain, Abduction: 180 degrees with pain at end range. IR: WNL with pain at end range, ER: 60 degrees. Strength: Core: fair minus, Shoulder: 4/5 with pain in all directions. Elbow: 4+/5 with pain. Special Test: empty can: positive, Impingment: positive - Goals Goal 1:: Patient will be I with HEP and progression Goal Time Frame: 4-6 Weeks Goal 2:: Patient will demo full AROM of the right UE where deficit with 0/10 pain Goal Time Frame: 4-6 Weeks Goal 3:: paty will maintain proper posture t/o tx session to demo increased scap s/s. Goal Time Frame: 4-6 Weeks - Rehabilitation Potential Physical Therapy Diagnosis: Patient presents with hypomobility- she has decreased painfree ROM, strength and muscular endurance leading to poor posture and increased pain with ADL's. Rehabilitation Potential: Fair - Anticipated Interventions Patient/Client Instruction: Educate patient on: Benefits of Fitness Program For the Purpose of:: To improve performance and independence with ADL's Therapeutic Exercise to Include: Strength training, Endurance training, Body mechanics, Postural training, Passive ROM, Active ROM, Scapular Strength/Stabilization For the Purpose of:: To improve muscle performance and motor function TENS: Yes Cryotherapy (ice pack, ice massage): Yes Thermo therapy (hot pack): Yes Ultrasound (thermal/non thermal): Yes For the Purpose of:: To decrease pain Thank you for the opportunity to evaluate your patient. For Medicare and Medicare HMO plans, please review the plan of care and approve it. It will need to be FAXED BACK to us at [phone] for Medicare purposes. Please let me know if there are questions or concerns regarding this plan of care. Physician Signature: Date: <Electronically signed by Jenny Tavarez DPT> 05/23/17 0919 CC: Tj ROE; Jose Figueroa MD ELR Signed For Medicare only, by signing this I certify the plan of care. Physicians Signature Date URGENT CARE VISIT Observed: 05/11/2017 Status: F Source: [place] REPORT 10:01 AM [place] [address] [place] [address] OFFICE VISIT Date of Service: 05/11/17 MR#: [id number] Acct: [id number] Name: MOISES RAO Rep #: [id number] : 1940 Provider: Tj ROE Age/Sex: 76/F Location: [facility] Status: Signed Intake Vital Signs05/11/17 Height 5 ft 1 in Intake Visit Reasons: shoulder pain Is patient in pain?: Yes Allergies codeine Adverse Reaction (Verified 05/11/17 06:42) Nausea vicodin Allergy (Severe, Uncoded 05/11/17 06:42) Nausea percocet Allergy (Intermediate, Uncoded 05/11/17 06:42) Nausea Medications Paroxetine HCl [Paxil] 20 mg PO DAILY 11/26/14 [History Confirmed 05/11/17] Raloxifene HCl [Evista] 60 mg PO DAILY 11/26/14 [History Confirmed 05/11/17] Simvastatin [Zocor] 20 mg PO QHS 11/26/14 [History Confirmed 05/11/17] Metoprolol Tartrate [Lopressor (beta liza)] 25 mg PO BID #60 tab 11/27/14 [Rx Confirmed 05/11/17] flecainide 100 mg tablet 100 mg PO BID tab 03/02/17 [History Confirmed 05/11/17] multivitamin tablet 1 tab PO QDAY 03/02/17 [History Confirmed 05/11/17] oxybutynin chloride ER 5 mg tablet,extended release 24 hr 10 mg PO QDAY tab 03/02/17 [History Confirmed 05/11/17] potassium 99 mg tablet 99 mg PO QDAY 03/02/17 [History Confirmed 05/11/17] biotin 300 mcg tablet 1 mg PO QDAY 03/24/17 [History Confirmed 05/11/17] calcium citrate 250 mg tablet 250 mg PO BID tab 03/24/17 [History Confirmed 05/11/17] cholecalciferol (vitamin D3) 5,000 unit capsule 5,000 unit PO QDAY 03/27/17 [History Confirmed 05/11/17] [facility] Medical History Other detention (current) 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 Patient states that several weeks ago she slipped on ice and fell and put her right arm out to catch herself. She states that since that time she has been having pain over the anterior of her right upper arm. She denies any loss in range of motion or inability with her arm. No numbness or tingling or radiation of the pain. No other associated symptoms or alleviating/aggravating factors. ROS Const Constitutional: No chills, fever(s), fatigue or abnormal sleep pattern Resp Respiratory: No shortness of breath or chest congestion Cardio Cardiology: No chest pain at rest, chest pain with exertion or shortness of breath Musc Musculoskeletal: Positive for other (Right bicep pain); no joint pain, limited range of motion, joint swelling or deformity Skin Skin: No wounds or lesions Neuro Neurology: No behavioral changes or confusion Psych Psychiatric: No behavioral changes, No confusion, No abnormal sleep pattern Endo Endocrine: No fatigue Exam Const General: cooperative, healthy appearing [facility] Head: normocephalic, atraumatic Ears: hearing grossly normal bilaterally Face and sinus: face symmetric Eyes General: appearance normal, both eyes and all related structures Pupils: PERRL Resp Effort AND Inspection: normal respiratory effort Auscultation: Bilateral: Clear to Auscultation Cardio Rate: regular rate Rhythm: regular rhythm Heart Sounds: S1 normal, S2 normal Musc Musculoskeletal: No decreased ROM Skin General: no rashes or lesions noted Extrem General: normal to inspection, full ROM, no muscle atrophy Other: Pain to palpation over the superior biceps tendon. No edema or ecchymosis. Negative Apley scratch, empty can and crossarm test. Psych Appearance: grossly normal Mental Status: mental status grossly normal Assessment AND Plan Problems 1. Strain of right biceps muscle, initial encounter S46.211A Status Acute Plan Advised patient to use ibuprofen or Tylenol unless contraindicated as needed for the pain. Patient also advised to use warm compresses several times daily. Patient will be referred to physical therapy for continued treatment. Advised to follow- up with PCP in 5-7 days if no better or sooner if worse. Patient verbalized understanding of all the above. This note was generated with NextPage dictation software. It may contain incorrect words, spelling, and punctuation that were not noted in checking the note before signing. Orders Referrals: Coding Level of Care Code Off vis,est,level 3 Diagnoses Strain of right biceps muscle, initial encounter S46.211A Encounter type: initial encounter Laterality: right 05/11/17 1001 <Electronically signed by Tj ROE> Date Tj ROE Cosigner Signature: Date (if applicable) CC: ALLERGIES ALLERGIES DATE TYPE / CODE NAME / CODE REACTION SEVERITY SOURCE 04/03/2018 Drug codeine/[id number] Nausea [place] Allergy/[id number](S 1550(RXNORM) [facility]) Hospital Repository 04/03/2018 Miscellaneous percocet Nausea [place] Allergy/[id number]([facility]) Hospital Repository 04/03/2018 Miscellaneous vicodin Nausea [place] Allergy/[id number]([facility]) Hospital Repository ENCOUNTERS ENCOUNTERS ADMIT/DISCHARGE ACCOUNT ADMITTING ENCOUNTER LOCATION SOURCE NUMBER CLASS 04/11/2018 [id number] Ambulatory [place] 6 [facility] ing:OPBD Repository 04/03/2018/ [id number] Ambulatory BMSBuilding:B [place] 9 8 [facility] Repository 04/02/2018 [id number] Ambulatory BMSBuilding:B [place] 1 [facility] Repository 04/01/2018 [id number] Ambulatory [place] ing:MFPLAB Repository 11/29/2017 [id number] Ambulatory [address] ing:OPBI Repository 09/25/2017/ [id number] Ambulatory BMSBuilding:B [place] 8 3 MS.[facility] Repository 07/12/2017/ [id number] Ambulatory BMSBuilding:B [place] 8 3 MS.SMO [facility] Repository 07/12/2017 [id number] Ambulatory [place] 8 [facility] ing:HPRAD Repository 07/05/2017 [id number] Ambulatory [place] 2 [facility] ing:HPRAD Repository 07/05/2017/ [id number] Ambulatory BMSBuilding:B [place] 8 6 MS.NOW [facility] Repository 06/15/2017/ [id number] Ambulatory [place] 8 7 [facility] ing:PT Repository 05/11/2017/ [id number] Ambulatory BMSBuilding:B [place] 8 1 MS.NOW [facility] Repository PAYERS PAYERS ENCOUNTER GUARANTOR PAYER SUBSCRIBER SOURCE 04/11/2018 NITIN Mina Primary MOISES S [place] [id number] Insurance:AETNA HOUSTONDOB: [facility] Number: [id number] State HospitalBF7MJYEffective Repository [address]Ztf: 330) Date:8300-22-54PH [phone] () 190857[place] [address]ED: 04/11/2018 Secondary NOT GIVENUNK [place] Insurance:SELF PAY [facility] Number: Effective Repository Date:2018-04-01 04/03/2018 NITIN Mina Primary MOISES S [place] [id number] Insurance:AETNA JALENDOB: [facility] Number: [id number] State HospitalBF7MJYEffective Repository [address]Uxy: (330) Date:9979-80-45RU [phone] () 626882SWF[place] [address]GG: 04/03/2018 Secondary NOT GIVENUNK [place] Insurance:SELF PAY [facility] Number: Effective Repository Date:2018-04-01 04/02/2018 NITIN Mina Primary MOISES S [place] [id number] Insurance:AETNA [facility]OB[facility]: [id number] [id number] Repository 23860Twk: (330) Date:2392-82-57DY [phone] (HP) 065877NCFORT [place] [address]PA: 04/02/2018 Secondary NOT GIVENUNK [place] Insurance:SELF PAY [facility] Number: Effective Repository Date:2018-04-02 04/01/2018 NITIN Mina Primary MOISES S [place] [id number] Insurance:AETNA [facility]ENDOB[facility] Number: [id number], [place] [id number] Repository [address]Jub: (330) Date:5876-36-88NC [phone] (HP) 430038GUF[place] [address]DV: 04/01/2018 Secondary NOT GIVENUNK [place] Insurance:SELF PAY [facility] Number: Effective Repository Date:2018-04-01 11/29/2017 NITIN Mina Primary MOISES S [place] [id number] Insurance:AETNA HOUSTONDOB: [facility] Number: [id number], [place] [id number] Repository 256[address]Yjn: (330) Date:7242-06-20PB [phone] (HP) 045593MYF[place] [address]ER: 11/29/2017 Secondary NOT GIVENUNK [place] Insurance:SELF PAY [facility] Number: Effective Repository Date:2017-11-07 09/25/2017 Nitin Thurston Primary MOISES S [place] [id number] Insurance:AETNA [facility]ENDOB[facility] Number: [id number] [id number] Repository [address]Idd: (330) Date:1548-99-87WK [phone] (HP) [id number] [place] [address]IF: 09/25/2017 Secondary NOT GIVENUNK [place] Insurance:SELF PAY [facility] Effective Repository Date:2017-09-25 07/12/2017 Nitin Thurston Primary MOISES Hernandezoster [id number] Insurance:AETNA [facility]ALENDOB[facility]: [id number] [id number] Repository 25[address]Pfh: (330) Date:9358-72-22CT [phone] (HP) [id number] [place] [address]TU: 07/12/2017 Secondary NOT GIVENUNK [place] Insurance:SELF PAY [facility] Number: Effective Repository Date:2017-07-12 07/12/2017 Nitin Thurston [facility] MOISES S [place] [id number] Insurance:AETNA JALENDOB: [facility] Number: [id number] [id number] Repository 34[address]Qmb: (330) Date:5472-68-81CF [phone] (HP) [id number] [place] [address]UD: 07/12/2017 Secondary NOT GIVENUNK [place] Insurance:SELF PAY [facility] Number: Effective Repository Date:2017-07-11 07/05/2017 Nitin Thurston Primary MOISES S [place] [id number] Insurance:AETNA JALENDOB: [facility]: [id number], [place] [id number] Repository [address]Hhv: (330) Date:7391-98-00XT [phone] (HP) [id number] [place] [address]US: 07/05/2017 Secondary NOT GIVENUNK [place] Insurance:SELF PAY [facility] Number: Effective Repository Date:2017-07-05 07/05/2017 Nitin Thurston Primary MOISES Gaston [id number] Insurance:AETNA HOUSTONDOB: [facility] Number: [id number], [place] [id number] Repository 56[address]Hyu: (330) Date:0796-74-09BV [phone] (HP) [id number] [place] [address]OB: 07/05/2017 Secondary NOT GIVENUNK [place] Insurance:SELF PAY [facility] Number: Effective Repository Date:2017-07-05 06/15/2017 MOISES S Primary MOISES Gaston [id number] Insurance:AETNA JALENDOB: [facility] [place]: [id number] [id number] Repository 468[address]Vtd: (330) Date:9248-60-92IY [phone] (HP) [id number] [place] [address]EA: 06/15/2017 Secondary NOT GIVENUNK [place] Insurance:SELF PAY [facility] Number: Effective Repository Date:2017-05-18 05/11/2017 Nitin Thurston Primary MOISES Gaston [id number] Insurance:AETNA JALENDOB: [facility] Number: [id number], [place] [id number] Repository [address]Wvw: (330) Date:7348-83-33PX [phone] (HP) [id number] [place] [address]KR: 05/11/2017 Secondary NOT GIVENUNK [place] Insurance:SELF PAY [facility] Number: Effective Repository Date:2017-05-11
== END ==
PROVIDERS: Family Provider Family Medicine; PCP Family Medicine; Visit Provider Family Medicine
DX: Z78.0 Asymptomatic menopausal state (principal); M85.80 Other specified disorders of bone density and structure, unspecified site
CPT/HCPCS: 77080

== ENCOUNTER → 2018-04-29 07:49 | Outpatient (CLI) | payer MEDICARE, SELFPAY ==
[2018-04-29 07:39] VITALS: BMI 21.9
--- NOTE | 2018-04-29 07:52 | RAD_ITS ---
STUDY: X-RAY - RIGHT SHOULDER REASON FOR EXAM: Difficulty raising arm, fall 2 days ago. TECHNIQUE: 4 view(s) of the shoulder. COMPARISON: None. FINDINGS: There is a small osteophyte of the humeral head without demonstrated joint space narrowing of the glenohumeral articulation. There is mild joint space narrowing of the acromioclavicular joint, best demonstrated on the external rotation view. Normal acromion. Normal humeral head and visualized proximal humerus. The soft tissue structures are unremarkable. Normal visualized pulmonary apex. RAD/Shoulder min 2 Views IMPRESSION: Mild acromioclavicular arthrosis. Small osteophyte of the humeral head. Electronically Signed: Navi Garcia MD at 8:40 EST Tel , Service support ,
== END ==
PROVIDERS: Family Provider Family Medicine; PCP Family Medicine; Referring Provider Physician Assistant; Visit Provider Physician Assistant
DX: M25.511 Pain in right shoulder (principal)
CPT/HCPCS: 73030

== ENCOUNTER 2018-07-16 07:00 | Outpatient (RCR) | payer MEDICARE, SELFPAY ==
[2018-05-17 08:44] VITALS: BMI 21.9
--- NOTE | 2018-05-24 08:11 | HP.PTEVAL_ITS ---
Patient's Visit Information MOISES RAO is a 77 year old F referred to Physical Therapy by JYOTHI Gil with a diagnosis of PROBABLE RIGHT ROTATOR CUF TEAR. Date of Evaluation: 05/24/18 Physical Therapist: Brian Saba PT, Cert MDT, OCS - Visit Plan Frequency: 2x /Week Duration: 4 Weeks Plan: LIGHT RTC/SCPAULAR STRENGTETHENING,NEURO CONTROL,MODALTIES - Subjective Findings: This 77 y/o female presents to physical therapy with probable right cuff tear. Patient fell Apr 27 2018 at [facility] mechanical fall onto right shoulder. Patient had alot of pain [facility] - for fracture.Intially ,pain was intense patient has no active motion. Patient hen seen Miguel Ángel Giles diaganosed with torn RTC. Patient unable to do RTC surgery due to taking care of . Patient has difficulty with ADLS' ,self hygine ,and unable to raise arm above 90 degrees affects housework tasks and taking care of . Patient has h/o bicep tear. Patient pain can affects sleeping. Patient denies parathesia/tingling. Patient possible RTC affects QOL and function. SOCIAL: . VOCATION: retired - Pain Right Shoulder Pain Intensity (Out of 10): 2 Pain Intensity Range: 10 - Objective POSTURE: mild foward posture. NEURO: intact. PALAPTION: tender grossly shoulder. AROM: unable. PROM: flexion /abd 160 degrees,ER 90 degrees. MMT: infraspinatous/subscapularis 3+/5,supraspinatous 3/5,deltoid 1/5. CAPSULAR: WNL - Special Tests R Shoulder External Rotation Lag Test - RC Tear: Positive R Shoulder Supine Impingement Test - RC Tear: Positive R Shoulder Lift Off Test - Subscapular Tear: Positive R Shoulder Drop Sign - IS Test: Negative R Shoulder Neer - Impingement: Positive R Shoulder Beaver Álvaro - Impingement: Positive R Shoulder Shrug Sign - OA/Adhesive Capsulitis: Positive - Goals Goal 1:: Independant with HEP. Goal Time Frame: 4-6 Weeks Goal 2:: Patient to decrease pain by 50% or greater to improve function Goal Time Frame: 4-6 Weeks Goal 3:: Patient be able to do ADL'S and self hygine 90 degrees Goal Time Frame: 4-6 Weeks Goal 4:: Patient increase strength RTC by 1/2 grade to improve function with AD L'S. Goal Time Frame: 4-6 Weeks Goal 5:: Patient to improve Quick Dash SHOULDER score 5 points to improve QOL. Goal Time Frame: 4-6 Weeks - Rehabilitation Potential Physical Therapy Diagnosis: This patient has right RTC with poor AROM ,RTC weakness,+ supraspinatous ,pain affect ADL's ,thus beinifit from skilled PT Rehabilitation Potential: Good - Anticipated Interventions Patient/Client Instruction: Educate patient on: Condition, Plan of Care For the Purpose of:: To decrease pain, To increase ROM, To improve muscle performance and motor function, To improve ability to perform ADL's, To increase tolerance to activity/condition/position, To improve ability of physical actions for home/community/work/leisure, To improve health of tissue, To decrease soft tissue restriction, To increase flexibility/ROM, To improve ability to perform tasks related to life management Therapeutic Exercise to Include: Strength training, Postural training, Flexibilty training, Active ROM For the Purpose of:: To decrease pain, To increase ROM, To improve muscle performance and motor function, To increase tolerance to activity/condition/position, To improve ability of physical actions for home/community/work/leisure, To improve health of tissue, To decrease soft tissue restriction, To assume or resume ADL's, To improve ability to perform tasks related to life management TENS: Yes IF ES: Yes Cryotherapy (ice pack, ice massage): Yes Thermo therapy (hot pack): Yes Ultrasound (thermal/non thermal): Yes For the Purpose of:: To decrease pain, To increase ROM, To improve health of tissue, To decrease soft tissue restriction Thank you for the opportunity to evaluate your patient. For Medicare and Medicare HMO plans, please review the plan of care and approve it. It will need to be FAXED BACK to us at [phone] for Medicare purposes. For Medicare only, by signing this I certify the plan of care. Please let me know if there are questions or concerns regarding this plan of care. Physician Signature: Date:
--- NOTE | 2018-06-25 07:23 | HP.PTREVAL_ITS ---
JYOTHI Gil, It has been my pleasure to treat MOISES RAO over the last 9 visits for PROBABLE RIGHT ROTATOR CUF TEAR. Please see the progress note below for an update on the physical therapy plan of care! Subjective: Patient doing alot about better less pain..able lift arm without wt Objective/Function: POSTURE: mild foward posture. NEURO: intact. AROM: flexion 120 degrees ,abd 11 degrees. MMT: RTC supraspinatous/infraspinatous 3+/5. - drop arm Plan Plan: cont with POC interventions 1x week for 3wks Goals Goal 1:: Independant with HEP. Goal Time Frame: 4-6 Weeks Goal 2:: Patient to decrease pain by 50% or greater to improve function Goal Time Frame: 4-6 Weeks Goal Progress: Progressing Goal 3:: Patient be able to do ADL'S and self hygine 90 degrees Goal Time Frame: 4-6 Weeks Goal 4:: Patient increase strength RTC by 1/2 grade to improve function with ADL'S. Goal Time Frame: 4-6 Weeks Goal Progress: Goal Met Goal 5:: Patient to improve Quick Dash SHOULDER score 5 points to improve QOL. Goal Time Frame: 4-6 Weeks Goal Progress: Progressing Anticipated Interventions Patient/Client Instruction: Educate patient on: Condition, Plan of Care For the Purpose of:: To decrease pain, To increase ROM, To improve muscle performance and motor function, To improve ability to perform ADL's, To increase tolerance to activity/condition/position, To improve ability of physical actions for home/community/work/leisure, To improve health of tissue, To decrease soft tissue restriction, To increase flexibility/ROM, To improve ability to perform tasks related to life management Therapeutic Exercise to Include: Strength training, Postural training, Flexibilty training, Active ROM For the Purpose of:: To decrease pain, To increase ROM, To improve muscle performance and motor function, To increase tolerance to a ctivity/condition/position, To improve ability of physical actions for home/community/work/leisure, To improve health of tissue, To decrease soft tissue restriction, To assume or resume ADL's, To improve ability to perform tasks related to life management TENS: Yes IF ES: Yes Cryotherapy (ice pack, ice massage): Yes Thermo therapy (hot pack): Yes Ultrasound (thermal/non thermal): Yes For the Purpose of:: To decrease pain, To increase ROM, To improve health of tissue, To decrease soft tissue restriction Please do not hesitate to contact me at [phone] by phone or if you have questions or concerns regarding this new plan of care! Sincerely, Brian Saba, PT, Cert MDT, OCS
--- NOTE | 2018-07-16 07:33 | HP.PTDCSUM_ITS ---
HP - PT D/C Summary It has been my pleasure to treat MOISES RAO under orders from JYOTHI Gil, for the diagnosis of PROBABLE RIGHT ROTATOR CUF TEAR for a total of 12 visit(s). Discharge Date: Please see the following information for a summary of their discharge status. - Subjective Subjective: Doing better ..can do ADL'S above 90 degrees,and above 90 degreess for self hygine - Pain Right Shoulder Pain Intensity (Out of 10): 1 - Overall Improvement % Improvement: 10 - Objective Objective/Function: POSTURE rounded shoulders. NEURO: intact. AROM: flexion 11 0 degrees. MMT: 3/5 infraspinatous/supraspintous ,deltoid 3-/5 - Goals Goal 1:: Independant with HEP. Goal Progress: Goal Met Goal 2:: Patient to decrease pain by 50% or greater to improve function Goal Progress: Goal Met Goal 3:: Patient be able to do ADL'S and self hygine 90 degrees Goal Progress: Goal Met Goal 4:: Patient increase strength RTC by 1/2 grade to improve function with ADL'S. Goal Progress: Progressing Goal 5:: Patient to improve Quick Dash SHOULDER score 5 points to improve QOL. Goal Progress: Goal Met - Plan Plan: D/C TO HEP - D/C Information If there are questions or concerns regarding this patient's physical therapy, please feel free to call me at [phone]. Thank you for the referral of this patient. Sincerely, Brian Saba, PT, Cert MDT, OCS
== END 2018-07-16 19:00 | disposition home or self-care (01) ==
LOC: PT 07:00
PROVIDERS: Family Provider Family Medicine; PCP Family Medicine; Referring Provider Physician Assistant; Visit Provider Physician Assistant
DX: M75.101 Unspecified rotator cuff tear or rupture of right shoulder, not specified as traumatic (principal)
CPT/HCPCS: 97110; 97162

== ENCOUNTER → 2018-11-29 | Outpatient (CLI) | payer MEDICARE, SELFPAY ==
[2018-10-01 07:52] VITALS: BMI 21.7
--- NOTE | 2018-11-29 08:37 | BI_ITS ---
MAMMOGRAPHY - BILATERAL SCREENING REASON FOR EXAM: Female, 78 years old. Routine annual screening examination. PERTINENT HISTORY: Non-contributory. Prior left excisional breast biopsy and left stereotactic breast biopsy. Remote right stereotactic breast biopsy as well. TECHNIQUE: Digital bilateral breast patrizia (3D mammographic acquisition) in the CC and MLO projections. 2-D mediolateral oblique (MLO) and craniocaudad (CC) views of both breasts were obtained. CAD: Full Field Digital Mammography with Computer Added Detection was performed. COMPARISON: Comparison is made with prior examination dated November 29, 2017 and November 14, 2016. FINDINGS: Breast Composition: The breasts are heterogeneously dense, which may obscure small masses. There are no dominant masses or suspicious calcifications. Stable appearance of the benign-appearing bilateral axillary lymph nodes. No other significant abnormalities are identified. There has been no significant change since the prior study. BI/SCREEN MAMM (CAD) W/PATRIZIA BILAT IMPRESSION: Stable bilateral screening mammogram. Yearly follow-up mammogram recommended. (A) ASSESSMENT CATEGORY: BIRADS Category 2: Benign. A letter regarding these results will be sent to the patient by the facility within 30 days. Approximately 10% of breast cancers are not detected by mammography. A normal mammogram should not delay biopsy of a clinically suspicious abnormality. [id number] Electronically Signed: Surya Dexter, at 9:48 EDT , Service support ,
== END | disposition home or self-care (01) ==
LOC: OPBI 08:37
PROVIDERS: Family Provider Family Medicine; PCP Family Medicine; Referring Provider Family Medicine; Visit Provider Family Medicine
DX: Z12.31 Encounter for screening mammogram for malignant neoplasm of breast (principal)
CPT/HCPCS: 77063; 77067

== ENCOUNTER → 2018-12-16 | Outpatient (CLI) | payer MEDICARE, SELFPAY ==
[2018-10-01 07:52] VITALS: BMI 21.7
--- NOTE | 2018-12-16 15:00 | MRI_ITS ---
HISTORY: Dizziness. Fall one month ago. History of subdural hematoma. Previous MRI of the brain is available from May 25, 2015. Technique: Coronal T2, coronal T1 post gadolinium, sagittal T1 pre-gadolinium, axial T1 post gadolinium, and many axial series were obtained through the brain. 343 images. Findings: The brain is atrophic. No acute ischemia is present. The right subdural hematoma has completely resolved. There is likely a shakeel hole in the right parietal skull from treatment for the previous subdural. No enhancing parenchymal lesions are perceived. Flow is present within major central intracranial arteries. A right posterior communicating artery provides upon results of flow to the right RADIO TECHNICIAN. No acute intracranial hemorrhage is perceived. MRI/Brain W/WO Contrast IMPRESSION: Evacuation end healing after large right subdural hematoma. No midline shift. No acute ischemia. No acute disease perceived. No enhancing lesions identified. at 0110 Reported and signed by: Dennis Man MD Electronically Signed: Dennis Man MD at 1:09 EDT Tel , Service support ,
[2018-12-16 15:36] LABS: CREATININE FINGERSTICK 0.6 mg/dL (0.55-1.02); EGFR FINGERSTICK > 60.0000 mL/min (>60)
== END | disposition home or self-care (01) ==
LOC: MRI 14:55
PROVIDERS: Family Provider Family Medicine; PCP Family Medicine; Referring Provider Family Medicine; Visit Provider Family Medicine
DX: R42 Dizziness and giddiness (principal); S06.5X9A Traumatic subdural hemorrhage with loss of consciousness of unspecified duration, initial encounter; W19.XXXA Unspecified fall, initial encounter
CPT/HCPCS: 70553; A9575

== ENCOUNTER → 2019-04-24 15:47 | Outpatient (CLI) | payer MEDICARE, SELFPAY ==
[2019-04-24 09:02] VITALS: BMI 22.6
== END ==
PROVIDERS: PCP Family Medicine; Referring Provider Family Medicine; Visit Provider Family Medicine
DX: R39.15 Urgency of urination (principal)
CPT/HCPCS: 87086; 87088; 87186

== ENCOUNTER → 2019-06-02 15:48 | Outpatient (CLI) | payer MEDICARE, SELFPAY ==
[2019-04-24 09:02] VITALS: BMI 22.6
== END ==
PROVIDERS: PCP Family Medicine; Referring Provider Nurse Practitioner Adult Health; Visit Provider Nurse Practitioner Adult Health
DX: R35.0 Frequency of micturition (principal)
CPT/HCPCS: 87086; 87088; 87186

== ENCOUNTER → 2019-08-19 08:09 | Outpatient (CLI) | payer MEDICARE, SELFPAY ==
[2019-04-24 09:02] VITALS: BMI 22.6
[2019-08-19 10:01] LABS: Absolute Lymphocyte Count 1.69 X10^3/uL (0.83-4.51); Absolute Neutrophil Count 2.8 X10^3/uL (2.0-7.7); Basophil# 0.04 X10^3/uL; Basophil% 0.7 % (0-1); Eosinophils% 1.8 % (0-5); Hematocrit 37.1 % (37-47); Hemoglobin 11.8 g/dL (12.0-15.0); Lymphocyte # 1.69 X10^3/ul (4.0); Lymphocyte % 31.2 % (19-41); Mean Corp Hgb Conc 31.8 g/dL (32-36); Mean Corpuscular Hgb 31.4 pg (27.0-32.0); Mean Corpuscular Volume 98.7 fL (81-99); Mean Platelet Vol. 9.4 fl (6.2-12.0); Monocyte# 0.77 X10^3/uL; Monocyte% 14.2 % (0-10); NRBC Flagged by Analyzer 0 % (0-5); Neutrophil # 2.79 X10^3/uL (2.7-7.7); Neutrophil % 51.5 % (47-70); Platelet Count 291 K/mm3 (150-450); RBC Distribution Width CV 13.1 % (11.6-14.6); RBC Distribution Width SD 46.8 fl (35.1-43.9); Red Blood Count 3.76 M/mm3 (4.2-5.4); White Blood Count 5.4 K/mm3 (4.4-11.0)
[2019-08-19 10:12] LABS: Vitamin D,25 Hydroxy 71.6 ng/mL
[2019-08-19 10:14] LABS: ALB/GLOB Ratio 1.1 RATIO (0.9-2.4); AST(SGOT) 23 U/L (15-37); Alanine Aminotransfer ALT/SGPT 25 U/L (13-56); Albumin, Serum 3.4 g/dL (3.2-5.0); Alkaline Phosphatase 44 U/L (45-117); Anion Gap 8 (5-15); BUN 25 mg/dL (7-18); BUN/Creat Ratio 30.8 RATIO (10-20); Calcium,Total 8.9 mg/dL (8.5-10.1); Chloride 105 mmol/L (98-107); Cholesterol 182 mg/dL (200); Creatinine, Serum 0.81 mg/dL (0.55-1.02); EST Glomerular Filtration Rate 72 mL/min (>60); Est Glom Filt Rate - Afr Amer 88 mL/min (>60); Globulin 3.1 g/dL (2.2-4.2); Glucose 102 mg/dL (74-106); High Density Lipoprotein 62 mg/dL; Potassium 4.3 mmol/L (3.5-5.1); Protein, Total 6.5 g/dL (6.4-8.2); Sodium Level 141 mmol/L (136-145); Triglycerides 120 mg/dL; Very Low Density Lipoprotein 24 mg/dL (5-40)
== END ==
PROVIDERS: PCP Family Medicine; Visit Provider Family Medicine
DX: I48.91 Unspecified atrial fibrillation (principal); E78.00 Pure hypercholesterolemia, unspecified; E55.9 Vitamin D deficiency, unspecified
CPT/HCPCS: 36415; 80053; 80061; 82306; 85025

== ENCOUNTER → 2020-02-23 07:41 | Outpatient (CLI) | payer MEDICARE, SELFPAY ==
[2019-11-05 09:30] VITALS: BMI 20.9
--- NOTE | 2020-02-23 07:42 | BI_ITS ---
MAMMOGRAPHY - BILATERAL SCREENING REASON FOR EXAM: Female, 79 years old. Routine annual screening examination. PERTINENT HISTORY: Non-contributory. Remote bilateral stereotactic breast biopsies and left excisional breast biopsy. TECHNIQUE: Digital bilateral breast patrizia (3D mammographic acquisition) in the CC and MLO projections. 2-D mediolateral oblique (MLO) and craniocaudad (CC) views of both breasts were obtained. CAD: Full Field Digital Mammography with Computer Added Detection was performed. COMPARISON: Comparison is made with prior study dated 11/29/2018 and 11/29/2017. FINDINGS: Breast Composition: The breasts are heterogeneously dense, which may obscure small masses. There are no dominant masses or suspicious calcifications. Stable benign appearing bilateral axillary lymph nodes. No other significant abnormalities are identified. There has been no significant change since the prior study. BI/SCREEN MAMM (CAD) W/PATRIZIA BILAT IMPRESSION: Stable bilateral screening mammogram. Yearly follow-up mammogram recommended. (A) ASSESSMENT CATEGORY: BIRADS Category 2: Benign. A letter regarding these results will be sent to the patient by the facility within 30 days. Approximately 10% of breast cancers are not detected by mammography. A normal mammogram should not delay biopsy of a clinically suspicious abnormality. [id number] Electronically Signed: Surya Dexter, at 9:53 EST , Service support ,
== END ==
PROVIDERS: PCP Family Medicine; Referring Provider Family Medicine; Visit Provider Family Medicine
DX: Z12.31 Encounter for screening mammogram for malignant neoplasm of breast (principal)
CPT/HCPCS: 77063; 77067

== ENCOUNTER → 2020-09-24 07:57 | Outpatient (CLI) | payer MEDICARE, SELFPAY ==
[2020-05-12 10:39] VITALS: BMI 21.1
--- NOTE | 2020-09-24 08:07 | CT_ITS ---
STUDY: CT BRAIN WITHOUT CONTRAST REASON FOR EXAM: Female, 80 years old. CHI and fall and behavior change RADIATION DOSAGE (If Supplied By Facility): CTDIvol = ( 44.99 ) mGy, DLP = ( 779.24 ) mGycm TECHNIQUE: Transaxial CT imaging of the brain was performed without administration of intravenous contrast material. Individualized dose optimization techniques were used for this CT. COMPARISON: Comparison is made with prior MRI of the brain dated 12/16/2018. FINDINGS: Normal soft tissue structures. There is evidence of prior craniotomy of the right parietal bone and left frontal parietal bones. There is mild cerebral atrophy with widening of the extra-axial spaces and ventricular dilatation. Normal white matter tracts of the cerebral hemispheres. Normal basal ganglia and thalami. Normal brainstem. There is mild cerebellar atrophy. There is no intracranial hemorrhage. There are no findings of an acute ischemic infarction. Atherosclerotic calcific plaques of the cavernous portions of the common carotid arteries bilaterally. Atherosclerotic plaque formation of the vertebral arteries. Normal visualized paranasal sinuses. CT/Brain/Head without Contrast IMPRESSION: Chronic involutional changes of the brain. Electronically Signed: Surya Dexter MD at 9:38 EDT , Service support ,
== END ==
PROVIDERS: PCP Family Medicine; Visit Provider Family Medicine
DX: S09.90XA Unspecified injury of head, initial encounter (principal)
CPT/HCPCS: 70450

== ENCOUNTER 2020-11-02 10:00 | Outpatient (RCR) | payer MEDICARE, SELFPAY ==
[2020-05-12 10:39] VITALS: BMI 21.1
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
--- NOTE | 2020-11-02 10:36 | HP.PTDCSUM ---
It has been my pleasure to treat MOISES RAO referred by Dr. Jarad Chaparro MD, with the diagnosis of Fall, CHI for a total of 4 visit(s). Discharge Date: 11/02/20 Please see the following information for a summary of their discharge status. Subjective: Pt reports that she has been dizzy twice in the last week and she has never had that before. Both times she was walking and had to sit down and both times it was hot. She felt like it might come ontoday during exercise class but it has not. She wants her BP checked and to call her Dr and get in. She has not had a PARNELL in years since a procedure % Improvement: 99 Objective/Function: BP 160/80 which is high for the pt. CATSIB 120/120. FGA 29 Goal 1:: I HEP Goal 2:: Increase FGA by 5 points to meet age standard to reach score of 24 and decrease fall risk Goal 3:: Increase CATSIB to 120/120 to decrease fall risk Plan: DC PT. Pt to go back to Re increase in BP and recent dizzy episodes Discharge Comments: DC PT If there are questions or concerns regarding this patient's physical therapy, please feel free to call me at [phone]. Thank you for the referral of this patient. Sincerely, Yessica Catherine, MPT Balance/Gait/Functional tests - Balance/Special Test Scores Functional Gait Assessment Score: 29 % Disability: 3.3400 CATSIB Score (Max score 120 seconds): 120 Lower Extremity Functional Score: 67
== END 2020-11-02 19:00 | disposition home or self-care (01) ==
LOC: PT 10:00
PROVIDERS: PCP Family Medicine; Referring Provider Family Medicine; Visit Provider Family Medicine
DX: S09.90XD Unspecified injury of head, subsequent encounter (principal); W19.XXXD Unspecified fall, subsequent encounter
CPT/HCPCS: 97110; 97161; 97530

== ENCOUNTER → 2020-11-16 12:55 | Outpatient (CLI) | payer MEDICARE, SELFPAY ==
--- NOTE | 2020-11-16 12:56 | ECHOD_ITS ---
Version 2 Reason For Study: PAF/ ARRHYTHMIA Procedure This was a 2D Doppler, Color Flow transthoracic echocardiogram. Exam performed in department. Left Ventricle Normal LV size. Left ventricular systolic function is normal. The estimated ejection fraction is 60 %. No regional wall motion abnormalities noted. Right Ventricle Normal RV size. Normal systolic function. Atria Normal left atrium. Normal right atrium. Probable patent foramen ovale. Mitral Valve There is mild mitral annular calcification. Mild (1+) mitral valve insufficiency. Tricuspid Valve Normal tricuspid valve. Mild (1+) tricuspid valve insufficiency. Pulmonary artery systolic pressure is 44 mmHg. Aortic Valve Normal aortic valve. Mild (1+) aortic valve insufficiency. Pulmonic Valve Normal pulmonic valve. Great Vessels Normal aortic root. The pulmonary artery is normal size. Normal inferior vena cava. Pericardium/Pleural No pericardial effusion. MMode/2D Measurements & Calculations LVIDd: 4.2 cm IVSd: 0.97 cm Ao root diam: 3.0 cm LVIDs: 2.7 cm LVPWd: 0.97 cm RVDd: 3.3 cm FS: 35.3 % LAV(MOD-bp): 77.5 ml LVAd ap4: 24.9 cm2 SV(MOD-sp4): 45.4 ml LAV(MOD-bp) Indexed: 52.5 ml/m2 LVLd ap4: 6.9 cm LAV(MOD-sp2): 88.5 ml EDV(MOD-sp4): 71.0 ml LAV(MOD-sp4): 67.9 ml EDV(sp4-el): 75.9 ml LVAs ap4: 13.0 cm2 LVLs ap4: 5.3 cm ESV(MOD-sp4): 25.6 ml ESV(sp4-el): 27.3 ml EF(MOD-sp4): 63.9 % EF(sp4-el): 64.0 % SV(sp4-el): 48.6 ml LA A4 area: 23.6 cm2 LA dimension(2D): 3.8 cm RA A4 area: 15.6 cm2 Time Measurements MV dec time: 0.19 sec Doppler Measurements & Calculations MV E max chun: 102.0 cm/sec Lat Peak E' Chun: 5.9 cm/sec Med Peak E' Chun: 4.4 cm/sec MV A max chun: 80.4 cm/sec E/E' lat: 17.4 E/E' med: 23.2 MV E/A: 1.3 MV V2 max: 95.9 cm/sec AI max chun: 443.8 cm/sec TR max chun: 313.0 cm/sec MV max P.7 mmHg AI max P.8 mmHg TR max P.2 mmHg MV V2 mean: 46.3 cm/sec MV mean P.1 mmHg AI dec slope: 208.1 cm/sec2 MV V2 VTI: 37.3 cm AI P1/2t: 624.7 msec MV P1/2t-pr_phl: 152.6 msec ECHO/Echo Complete Interpretation Summary Normal LV size. Left ventricular systolic function is normal. The estimated ejection fraction is 60 %. There is mild mitral annular calcification. Mild (1+) mitral valve insufficiency. Probable patent foramen ovale. Mild (1+) aortic valve insufficiency. Ordering Physician: Kurt Robertson Referring Physician: DUNCAN BENTON Performed By: Renetta Marroquin, SANG, RVT
== END ==
PROVIDERS: PCP Family Medicine; Referring Provider Internal Medicine Cardiovascular Disease; Visit Provider Internal Medicine Cardiovascular Disease
DX: I48.0 Paroxysmal atrial fibrillation (principal)
CPT/HCPCS: 93306

== ENCOUNTER → 2021-03-15 14:10 | Outpatient (CLI) | payer MEDICARE, SELFPAY ==
[2021-03-15 14:53] LABS: AST(SGOT) 25 U/L (15-37); Alanine Aminotransfer ALT/SGPT 30 U/L (13-56); Albumin, Serum 3.4 g/dL (3.2-5.0); Alkaline Phosphatase 58 U/L (45-117); Bilirubin, Direct 0.06 mg/dL (0.00-0.30); Cholesterol 193 mg/dL (200); Globulin 3.4 g/dL (2.2-4.2); High Density Lipoprotein 71 mg/dL; Protein, Total 6.8 g/dL (6.4-8.2); Triglycerides 235 mg/dL; Very Low Density Lipoprotein 47 mg/dL (5-40)
== END ==
PROVIDERS: PCP Family Medicine; Referring Provider Internal Medicine Cardiovascular Disease; Visit Provider Internal Medicine Cardiovascular Disease
DX: E78.00 Pure hypercholesterolemia, unspecified (principal)
CPT/HCPCS: 80061; 80076

== ENCOUNTER 2021-03-28 10:52 | Outpatient (CLI) | payer MEDICARE, SELFPAY ==
--- NOTE | 2021-03-28 10:56 | BI_ITS ---
MAMMOGRAPHY - BILATERAL SCREENING REASON FOR EXAM: Female, 80 years old. Routine annual screening examination. PERTINENT HISTORY: Non-contributory. Remote left excisional breast biopsy and bilateral stereotactic breast biopsies. TECHNIQUE: Digital bilateral breast patrizia (3D mammographic acquisition) in the CC and MLO projections. 2-D mediolateral oblique (MLO) and craniocaudad (CC) views of both breasts were obtained. CAD: Full Field Digital Mammography with Computer Added Detection was performed. COMPARISON: Comparison is made with prior study dated 02/23/2020 and 11/29/2018. FINDINGS: Breast Composition: The breasts are heterogeneously dense, which may obscure small masses. There are no dominant masses or suspicious calcifications. Stable small benign-appearing bilateral axillary No other significant abnormalities are identified. There has been no significant change since the prior study. BI/SCRN MAMM (CAD)W/PATRIZIA BILAT IMPRESSION: Stable bilateral screening mammogram. Yearly follow-up mammogram recommended. (A) ASSESSMENT CATEGORY: BIRADS Category 1: Negative. A letter regarding these results will be sent to the patient by the facility within 30 days. Approximately 10% of breast cancers are not detected by mammography. A normal mammogram should not delay biopsy of a clinically suspicious abnormality. [id number] Electronically Signed: Surya Dexter MD at 12:25 EST , Service support ,
== END 2021-03-28 23:59 | disposition short-term general hospital (02) ==
LOC: OPBI 10:55
PROVIDERS: PCP Family Medicine; Referring Provider Family Medicine; Visit Provider Family Medicine
DX: Z12.31 Encounter for screening mammogram for malignant neoplasm of breast (principal)
CPT/HCPCS: 77063; 77067

== ENCOUNTER 2021-05-25 10:20 | Outpatient (CLI) | payer MEDICARE, SELFPAY | END 2021-05-25 23:59 | disposition home or self-care (01) | LOC: LABSPEC 10:22 | PROVIDERS: PCP Family Medicine; Referring Provider Family Medicine; Visit Provider Family Medicine | DX: R35.0 Frequency of micturition (principal) | CPT/HCPCS: 87086; 87088; 87186 ==

== ENCOUNTER 2021-08-04 09:49 | Outpatient (RCR) | payer MEDICARE, SELFPAY ==
--- NOTE | 2021-08-04 10:46 | HP.PTEVAL_ITS ---
Patient's Visit Information MOISES RAO is a 80 year old F referred to Physical Therapy by Dr. Jarad Chaparro MD with a diagnosis of Thoracic Outlet (Pseudo). Date of Evaluation: 08/04/21 Physical Therapist: Jenny Tavarez DPT - Visit Plan Frequency: 1x/Week Duration: 1 Week Plan: Hold- will attempt stretches and massage therapy then follow up as needed - Subjective Patient reports that her usually when she exercises her hands turn blue. She went to see the Dr. Chaparro he touched her upper traps and told him she needs to go to PT. He does not feel that its heart related. He wants her to use gloves. She has no pain and doesn't really know why she is in PT. She is using Voltaran Gel and now she can wear her rings again. The whole hand turns blue- and they are cold. The color returns very quickly. It seems to be connected with any sort of movement- including making dinner. When she rubs them together they also get better. She works out at 4 days a week- classes- strength and cardio and also walks. - Objective Posture: good throughout session. Gait: no deviation noted- good arm swing and trunk rotation. Palpation: tightness and trigger points throughout upper trap and levator- along the medial border of the scapula. 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 She does have increased tightness with SB bilatearl. Strength: Scap: fair plus, UE: 4+/5 throughout. Flex: Levator: severe, Upper Trap: severe. Sensation: WNL to gross touch in UE. Special Test: Ct's: negative bilateral - Goals Goal 1:: Patient will be I with HEP and progression Goal Time Frame: 4-6 Weeks Goal 2:: Patient will demo no restriction in upper trap/levator Goal Time Frame: 4-6 Weeks Goal 3:: Patient will report no blue hands for 1 week Goal Time Frame: 4-6 Weeks - Rehabilitation Potential Physical Therapy Diagnosis: Patient presents with hypomobility- she has increased muscular tightness in upper traps and levator leading to FH and i ncreased blueness to her hands with exercise. Rehabilitation Potential: Excellent - Anticipated Interventions Thank you for the opportunity to evaluate your patient. For Medicare and Medicare HMO plans, please review the plan of care and approve it. It will need to be FAXED BACK to us at [phone] for Medicare purposes. For Medicare only, by signing this I certify the plan of care. Please let me know if there are questions or concerns regarding this plan of care. Physician Signature: Date:
--- NOTE | 2021-09-08 14:25 | HP.PT.NRP ---
MOISES RAO was seen in my office for initial evaluation on 08/04/21. The following Plan of Care was established for this patient: Initial Frequency: 1x/Week Initial Duration: 1 Week This patient was last seen in our office . Pertinent comments regarding their Physical therapy will appear below: Patient has not attended PT in over 30 days- appropriate to be d/c and return to MD for further evaluation as needed. At this point I will be discontinuing this patient from physical therapy. I would be happy to see this patient again in the future if found appropriate by the physician. Thank you! Jenny Tavarez, EDUARDOT
== END 2021-08-04 19:00 | disposition home or self-care (01) ==
LOC: PT 09:49
PROVIDERS: PCP Family Medicine; Referring Provider Family Medicine; Visit Provider Family Medicine
DX: G54.0 Brachial plexus disorders (principal)
CPT/HCPCS: 97161

== ENCOUNTER → 2021-12-08 | Outpatient (CLI) | payer MEDICARE, SELFPAY ==
[2021-12-08 13:30] LABS: ALB/GLOB Ratio 1.1 RATIO (0.9-2.4); AST(SGOT) 21 U/L (15-37); Alanine Aminotransfer ALT/SGPT 26 U/L (13-56); Albumin, Serum 3.6 g/dL (3.2-5.0); Alkaline Phosphatase 57 U/L (45-117); Anion Gap 8 (5-15); BUN 18 mg/dL (7-18); BUN/Creat Ratio 24.4 RATIO (10-20); Calcium,Total 9.3 mg/dL (8.5-10.1); Chloride 104 mmol/L (98-107); Cholesterol 183 mg/dL (200); Creatinine, Serum 0.74 mg/dL (0.55-1.02); EST Glomerular Filtration Rate 81 mL/min (>60); Est Glom Filt Rate - Afr Amer 98 mL/min (>60); Globulin 3.3 g/dL (2.2-4.2); Glucose 110 mg/dL (74-106); High Density Lipoprotein 68 mg/dL; Potassium 4.3 mmol/L (3.5-5.1); Protein, Total 6.9 g/dL (6.4-8.2); Sodium Level 140 mmol/L (136-145); Thyroid Stim Hormone (TSH) 4.22 uIU/mL (0.358-3.74); Triglycerides 97 mg/dL; Very Low Density Lipoprotein 19 mg/dL (5-40)
== END | disposition home or self-care (01) ==
LOC: MFPLAB 10:15
PROVIDERS: PCP Family Medicine; Referring Provider Family Medicine; Visit Provider Family Medicine
DX: I48.91 Unspecified atrial fibrillation (principal); M85.80 Other specified disorders of bone density and structure, unspecified site
CPT/HCPCS: 36415; 80053; 80061; 82306; 84443

== ENCOUNTER → 2021-12-22 | Outpatient (CLI) | payer MEDICARE, SELFPAY ==
--- NOTE | 2021-12-22 13:00 | BD_ITS ---
STUDY: DUAL ENERGY X-RAY ABSORPTIOMETRY / DXA REASON FOR EXAM: Female, 81 years old. M810 TECHNIQUE: Bone Mineral Density (BMD) measurements of lumbar spine and bilateral hips were obtained. COMPARISON: Comparison is made with prior study dated 04/11/2018. FINDINGS: Lumbar Spine (L1-L4): g/cm2 (0.968) / T-score (-0.4) / Z-score (2.2) Findings are suggestive of normal bone density with a low fracture risk. Left Femur Total: g/cm2 (0.842) / T-score (-0.8) / Z-score (1.3) Left Femoral Neck: g/cm2 (0.803) / T-score (-0.4) / Z-score (1.9) Right Femur Total: g/cm2 (0.801) / T-score (-1.2) / Z-score (0.9) Right Femoral Neck: g/cm2 (0.828) / T-score (-0.2) / Z-score (2.1) The T-Scores on the most recent prior examination were: Lumbar Spine (L1-L4): There has been improvement of bone density since the previous examination. Left Femur Total: which represents a worsening of 6.2%. Right Femur Total: which represents a worsening of 70%. BD/Dexa Bone Density Study IMPRESSION: The patient is considered normal as outlined below according to World Matt Organization (WHO) criteria with a low fracture risk. There has been worsening of bone density since the previous examination. Reference Information: The T-score is the number of standard deviations above or below the standard which is normal for young adults at their peak bone mineral density. The World Health Organization (WHO) interprets the T-scores as follows: Above -1 Normal bone density Between -1 and -2.5 Osteopenia Equal to / or below -2.5 Osteoporosis As a practical clinical guideline, osteopenia may be graded as follows: Mild -1 through -1.5 Moderate -1.6 through -2.0 Severe -2.1 through -2.4 The Z-score is the number of standard deviations above or below age-matched controls. A Z-score of less than -1.5 would be considered abnormal. References: 1. NIH Osteoporosis and Related Bone Diseases www osteo.org 2. International Society for Clinical Densitometry www iscd.org 3. National Osteoporosis Foundation www nof.org Electronically Signed: Surya Dexter MD at 14:32 EDT ,
== END | disposition home or self-care (01) ==
LOC: OPBD 12:44
PROVIDERS: PCP Family Medicine; Visit Provider Family Medicine
DX: M81.0 Age-related osteoporosis without current pathological fracture (principal); M85.80 Other specified disorders of bone density and structure, unspecified site
CPT/HCPCS: 77080

== ENCOUNTER 2022-01-25 13:30 | Outpatient (RCR) | payer MEDICARE, SELFPAY ==
--- NOTE | 2022-01-10 10:24 | HP.PTEVAL_ITS ---
Patient's Visit Information MOISES RAO is a 81 year old F referred to Physical Therapy by Dr. Jarad Chaparro MD with a diagnosis of L hip pain, gluteal strain. Date of Evaluation: 01/10/22 Physical Therapist: Yasir Chong DPT - Visit Plan Frequency: 1x/Week Duration: 4 Weeks Plan: Start with glute med/max strengthening a tolerated. Add in ball rolling, DFM to superior gluteal region. Pt. requested to not do aquatic therapy at this point in time, deferred to land as tolerated. I added HEP today: clamshell with band, glute bridge, hip abd SL, IT band stretch and piriformis stretch, and ball DFM to gluteal region at wall. Progress HEP weekly. - Subjective Pt. is here today for her initial evaluation with L hip pain, gluteal strain. Pt. reports having increased R hip pain that started ~2 weeks ago while walking her dog. She was on uneven ground, but did not have a specific event that caused her pain. Pt. then went to a community exercise class and was having some increased soreness. She reports feeling much better today, but has not been back to her class yet. She has 2/10 pain, its just nagging me. She reports no issues while sleeping, but was having some issues with pressure to this area as well has some mild pain with walking. Pt. is hopeful to reduce symptoms in order to get back to all recreational walking and gym exercise classes. - Pain L gluteal region Pain Intensity (Out of 10): 2 Pain Intensity Range: 0, 3 - Objective POSTURE: Pt. has good posture in stance. Normal pelvic positioning. No exaggerated lordosis noted. PALPATION: Pt. has tenderness at superior aspect of L gluteal region. NO much pain at L piriformis, no low back pain noted. NEURO: normal sensation, normal DTR of BLEs. ROM: Pt. has fairly normal lumbar spine ROM, mild loss increase flexion (no increase in symptoms noted). Pt. has great ROM of B hips without increase in symptoms. MMT: RLE 5/5 throughout without increase in symptoms. LLE: 5/5 throughout ankle and knee, hip: flexion 5-/5 mild increase NW, abd 4+/5 mild increase NW, ext 4/5 mild increase NW, ER 4/5 NE, IR 4/5 NE. GAIT: PT. has fairly normal gait pattern without antalgic pattern. STAIRS: Pt. uses 1 HR for balance. Mild increase NW with stairs. - Special Tests L Hip Scour: Negative L Hip Quadrant - Intraarticular Pathology: Negative L Hip DALJIT - Intraarticular Pathology: Negative L Hip FADDIR - Labrum: Negative L Hip Trendelenberg - Glut Medius: Negative L Hip Jasvir - IT Band: Positive - Balance/Special Test Scores Oswestry Low Back Score: 2 - Goals Goal 1:: LTG: Pt. to be I with HEP. Goal Time Frame: 4-6 Weeks Goal 2:: LTG: Pt. to have 5/5 strength throughout L hip musculature. Goal Time Frame: 4-6 Weeks Goal 3:: LTG: Pt. to have no pain with stair negotiation without increase in symptoms of her L hip. Goal Time Frame: 4-6 Weeks Goal 4:: LTG: Pt. to resume all recreational and workout activities without increase in symptoms. Goal Time Frame: 4-6 Weeks - Rehabilitation Potential Physical Therapy Diagnosis: Pt. has signs and symptoms consistent Rehabilitation Potential: Excellent - Anticipated Interventions Patient/Client Instruction: Educate patient on: Condition, Plan of Care, Risk Factors, Benefits of Fitness Program For the Purpose of:: To improve decision making, To facilitate caregiver knowledge, To improve self management, To prevent re-injury, To improve ability to perform tasks related to life management, To improve tolerance to ADL's Therapeutic Exercise to Include: Endurance training, Body mechanics, Postural training, Flexibilty training, Dynamic Lumbar Stabilization For the Purpose of:: To decrease pain, To increase ROM, To improve nutrient delivery to tissue, To increase oxygenation perfusion, To improve muscle perform ance and motor function, To improve ability to perform ADL's, To improve gait and locomotor functions, To improve health of tissue, To increase flexibility/ROM Manual Therapy Techniques to Include: Functional dry needling, Soft tissue mobilization For the Purpose of:: To decrease pain, To increase ROM, To improve nutrient delivery to tissue, To improve muscle performance and motor function Thank you for the opportunity to evaluate your patient. For Medicare and Medicare HMO plans, please review the plan of care and approve it. It will need to be FAXED BACK to us at [phone] for Medicare purposes. For Medicare only, by signing this I certify the plan of care. Please let me know if there are questions or concerns regarding this plan of care. Physician Signature: Date:
--- NOTE | 2022-01-25 17:03 | HP.PTDCSUM ---
It has been my pleasure to treat MOISES RAO referred by Dr. Jarad Chaparro MD, with the diagnosis of L hip pain, gluteal strain for a total of 3 visit(s). Discharge Date: 01/25/22 Please see the following information for a summary of their discharge status. Subjective: Pt. reports being 100% better overall. No pain noted. She has been able to rejoin her classes without issues. Pt. pleased. HEP compliant. L gluteal region Pain Intensity (Out of 10): 0 % Improvement: 100 Objective/Function: Pt. is doing very well with PT. She is back to all of her gym classes without issues. She has not had any pain. She is to continue to progress as tolerated. Pt. is pleased. Normal ROM, no pain with all MMT. Pt. is back to all activities and will be DC from PT at this point. Goal 1:: LTG: Pt. to be I with HEP. Goal Progress: Goal Met Goal 2:: LTG: Pt. to have 5/5 strength throughout L hip musculature. Goal Progress: Goal Met Goal 3:: LTG: Pt. to have no pain with stair negotiation without increase in symptoms of her L hip. Goal Progress: Goal Met Goal 4:: LTG: Pt. to resume all recreational and workout activities without increase in symptoms. Goal Progress: Goal Met Plan: Pt. had met all goals and will be DC from PT at this point in time. Discharge Comments: Pt. was treated with some glute med and max strengthening and weaning back into her classes. pt. has met all goals and will be DC from PT at this point in time. If there are questions or concerns regarding this patient's physical therapy, please feel free to call me at [phone]. Thank you for the referral of this patient. Sincerely, Yasir Tovar Sipos, DPT Balance/Gait/Functional tests - Balance/Special Test Scores Oswestry Low Back Score: 2 Lower Extremity Functional Score: 72
== END 2022-01-25 19:00 | disposition home or self-care (01) ==
LOC: PT 13:30
PROVIDERS: PCP Family Medicine; Referring Provider Family Medicine; Visit Provider Family Medicine
DX: S76.312D Strain of muscle, fascia and tendon of the posterior muscle group at thigh level, left thigh, subsequent encounter (principal); X58.XXXD Exposure to other specified factors, subsequent encounter
CPT/HCPCS: 97110; 97161

== ENCOUNTER → 2022-05-10 | Outpatient (CLI) | payer MEDICARE, SELFPAY ==
--- NOTE | 2022-05-10 14:03 | BI_ITS ---
MAMMOGRAPHY - BILATERAL SCREENING REASON FOR EXAM: Female, 81 years old. Routine annual screening examination. PERTINENT HISTORY: Non-contributory. History of prior left excisional breast biopsy and bilateral stereotactic breast biopsies. TECHNIQUE: Digital bilateral breast patrizia (3D mammographic acquisition) in the CC and MLO projections. 2-D mediolateral oblique (MLO) and craniocaudad (CC) views of both breasts were obtained. CAD: Full Field Digital Mammography with Computer Added Detection was performed. COMPARISON: Comparison is made with prior study dated 03/28/2021 and 02/23/2020. FINDINGS: Breast Composition: The breasts are heterogeneously dense, which may obscure small masses. There are no dominant masses or suspicious calcifications. Stable small benign-appearing bilateral axillary lymph nodes. No other significant abnormalities are identified. There has been no significant change since the prior study. BI/SCRN MAMM (CAD)W/PATRIZIA BILAT IMPRESSION: Stable bilateral screening mammogram. Yearly follow-up mammogram recommended. (A) ASSESSMENT CATEGORY: BIRADS Category 2: Benign. A letter regarding these results will be sent to the patient by the facility within 30 days. Approximately 10% of breast cancers are not detected by mammography. A normal mammogram should not delay biopsy of a clinically suspicious abnormality. [id number] Electronically Signed: Surya Dexter MD at 14:46 EST ,
== END | disposition home or self-care (01) ==
LOC: OPBI 14:00
PROVIDERS: PCP Family Medicine; Visit Provider Family Medicine
DX: Z12.31 Encounter for screening mammogram for malignant neoplasm of breast (principal)
CPT/HCPCS: 77063; 77067

== ENCOUNTER 2023-04-03 10:00 | Outpatient (RCR) | payer MEDICARE, SELFPAY ==
--- NOTE | 2023-03-06 10:54 | HP.PTEVAL_ITS ---
Patient's Visit Information Visit Information Visit Information: MOISES RAO is a 82 year old F referred to Physical Therapy by Dr. Jarad Chaparro MD with a diagnosis of frequent falls. Date of Evaluation: 03/06/23 Physical Therapist: Jarad Quiros, EDUARDOT, OCS, CSCS Visit Plan Frequency: 1x/Week Duration: 4-6 Weeks Plan: biodex balance assessment then weekly x 3-4 for... vestibular balance, [id number] shift , funcitonal balance stoop and recover adn up off floor and ankle strength exercises. Subjective Subjective: Balance is not what it used to be. had a few falls mostly falling over objects not losing balance. Slipped on leaves one time. Feels like she has a steppage gait. No spinning. No neuropathy. Works out regularly at 4x/week in cardio and lifting in class. 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 Sleeping is good. Pain is OK. Walks dog 3-4x/day including at night on sidewalk and onto grass. Does not like walking on grass. Activities are pretty normal, has to hold on to rail to go to basement. Has HC accessible house. Objective Objective: Walks into PT I, trasnfers without UE I chair. steps reciprocally preferring two rails but able without railing slowly adn step to. Flexibility LE WFL, aROM WFL UE and LE reflexes 2/3 patella and achilles sensation LE WNL to gross light touch. strength is 4- in hips, 4- in knees and 3+ R ankle DF and inv/ev, 4- L, able to heel raise. coordination is Ok to reciprocal toe and heel tap Balance/Special Test Scores Functional Gait Assessment Score: 25 % Disability: 16.6700 CATSIB Score (Max score 120 seconds): 102 Lower Extremity Functional Score: 58 Goals Goal 1:: I appropriate HEP for ankle strength adn vestibular/funcitonal balance Goal Time Frame: 4-6 Weeks Goal 2:: Pt feel 50% better balance Goal Time Frame: 4-6 Weeks Goal 3:: Able to walk dog without worry and continuous pickling line pickler dog's feces Goal Time Frame: 4-6 Weeks Rehabilitation Potential Physical Therapy Diagnosis: imbalance due to vest weakness and ankle weakness limiting funciton at home Rehabilitation Potential: Fair Anticipated Interventions Patient/Client Instruction: Educate patient on: Condition and Plan of Care For the Purpose of:: To improve muscle performance and motor function, To increase tolerance to activity/condition/position and To improve gait and locomotor functions Therapeutic Exercise to Include: Strength training and Balance training For the Purpose of:: To improve ability of physical actions for home/community/work/leisure, To improve gait and locomotor functions and To improve safety Text: Thank you for the opportunity to evaluate your patient. For Medicare and Medicare HMO plans, please review the plan of care and approve it. It will need to be FAXED BACK to us at [phone] for Medicare purposes. For Medicare only, by signing this I certify the plan of care. Please let me know if there are questions or concerns regarding this plan of care. Physician Signature: Date:
--- NOTE | 2023-03-15 10:35 | HP.PTCOM_ITS ---
PT Communication Note 03/15/[address] Jarad Chaparro MD , Thank you for the referral of Mercedes Betancourt to [facility] for balance ass essment and training. I have enclosed a copy of her assessment for your review. In summation, on the modified CTSIB, she score greater than 2 standard deviations below the norm on the eyes closed conditions. On the Limits of Stability Test, she had a hard time with backwards weight shift even losing her balance 2x corrected by therapist. With these results in mind, I plan to see her weekly for 2-4 visits as needed to instruct in balance exercises to address these concerns and progress them to independence. thank you once again. Sincerely, EDUARDO HarperT, OCS, CSCS Contact Information
--- NOTE | 2023-06-11 10:22 | HP.PT.NRP ---
Patient Information Patient Information: MOISES RAO was seen in my office for initial evaluation on 03/06/23. The following Plan of Care was established for this patient: POC Established Initial Frequency: 1x/Week Initial Duration: 4-6 Weeks Anticipated Interventions Patient/Client Instruction: Educate patient on: Condition and Plan of Care For the Purpose of:: To improve muscle performance and motor function, To increase tolerance to activity/condition/position and To improve gait and locomotor functions Therapeutic Exercise to Include: Strength training and Balance training For the Purpose of:: To improve ability of physical actions for home/community/work/leisure, To improve gait and locomotor functions and To improve safety Last Seen Last Seen: This patient was last seen in our office 04/03/23. 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 She was to call if she needed to get back into PT and at this point I will discharge due as it has been over two months. At this point I will be discontinuing this patient from physical therapy. I would be happy to see this patient again in the future if found appropriate by the physician. Thank you! Jarad Quiros, DPT, OCS, CSCS Balance/Gait/Functional tests Balance/Special Test Scores Functional Gait Assessment Score: 25 % Disability: 16.6700 CATSIB Score (Max score 120 seconds): 102 Lower Extremity Functional Score: 58
== END 2023-04-03 19:00 | disposition home or self-care (01) ==
LOC: PT 10:00
PROVIDERS: PCP Family Medicine; Referring Provider Family Medicine; Visit Provider Family Medicine
DX: R29.6 Repeated falls (principal)
CPT/HCPCS: 97110; 97162; 97750

== ENCOUNTER → 2023-05-16 | Outpatient (CLI) | payer MEDICARE, SELFPAY ==
--- NOTE | 2023-05-16 07:07 | BI_ITS ---
MAMMOGRAPHY - BILATERAL SCREENING REASON FOR EXAM: Female, 82 years old. Routine annual screening examination. PERTINENT HISTORY: Non-contributory. TECHNIQUE: Digital bilateral breast patrizia (3D mammographic acquisition) in the CC and MLO projections. 2-D mediolateral oblique (MLO) and craniocaudad (CC) views of both breasts were obtained. CAD: Full Field Digital Mammography with Computer Added Detection was performed. COMPARISON: Comparison is made with prior study dated May 10, 2022 and March 28, 2021. FINDINGS: Breast Composition: The breasts are heterogeneously dense, which may obscure small masses. There are no dominant masses or suspicious calcifications. Stable small benign-appearing bilateral axillary lymph nodes. No other significant abnormalities are identified. There has been no significant change since the prior study. BI/SCRN MAMM (CAD)W/PATRIZIA BILAT IMPRESSION: Stable bilateral screening mammogram. Yearly follow-up mammogram recommended. (A) ASSESSMENT CATEGORY: BIRADS Category 2: Benign. A letter regarding these results will be sent to the patient by the facility within 30 days. Approximately 10% of breast cancers are not detected by mammography. A normal mammogram should not delay biopsy of a clinically suspicious abnormality. [id number] Electronically Signed: Surya Dexter MD at 8:32 EST ,
--- OUTSIDE RECORDS SUMMARY | 2023-05-16 07:09 | XMS RPT_ITS | CCD ---
Author Name Unknown Address [address] [place] [address] Organization [facility] Care Team Providers Care Plant Technician Name Role Phone MD Ailyn, Kurt S Unavailable Christie Soria LPN Unavailable Unavailab Kat Encarnacion Unavailable Christie Soria LPN Unavailable Unavailab Christie Levine LPN Unavailable Unavailab bambi Robertson MD Kurt S Unavailable Kat Chaparro Unavailable Allergies Allergy Classification Reported Allergen(s) Allergy Type Date of Onset Reaction(s) Facility (8 sources) acetaminophen / HYDROcodone drug allergy 07-02-2015 nausea [facility] Work Phone: (8 sources) acetaminophen / oxyCODONE drug allergy 07-02-2015 nausea [facility] Work Phone: (8 sources) codeine drug allergy 12-03-2014 unknown [facility] [facility] Work Phone: Medications Completed/Discontinued Medications Medication Drug Class(es) Dates Sig (Normalized) Sig (Original) Biotin (8 sources) Start: 06-08-2015 take 1 tablet by mouth once daily BIOTIN FORTE TABS One tablet by mouth daily BIOTIN TABS [id number] Kurt Robertson MD calcium citrate (4 sources) Start: 12-09-2014 take 1 tablet by mouth once daily CALCIUM CITRATE + D TABS One tablet by mouth daily CALCIUM CITRATE-VITAMIN D TABS [id number] Kurt Robertson MD CALCIUM CITRATE-VITAMIN D TABS (4 sources) Start: 12-09-2014 take 1 tablet by mouth once daily CALCIUM CITRATE + D TABS One tablet by mouth daily CALCIUM CITRATE-VITAMIN D TABS [id number] Kurt Robertson MD flecainide acetate 50 mg oral tablet (20 sources) Antiarrhythmic Start: 07-20-2015 take 1 tablet by mouth twice daily FLECAINIDE ACETATE 100 MG TABS One tablet by mouth twice daily FLECAINIDE ACETATE [id number] Kurt Robertson MD Problems Active Problems Problem Classification Problem Date Documented Da te Episodic/Chronic Cardiac dysrhythmias (16 sources) Paroxysmal atrial fibrillation; Translations: [Atrial fibrillation] Onset: 12-03-2014 07-01-2015 Chronic Disorders of lipid metabolism (8 sources) Hyperlipidemia; Translations: [Hyperlipidemia, unspecified] Onset: 12-03-2014 12-03-2014 Chronic Thyroid disorders (8 sources) Acquired hypothyroidism; Translations: [Other specified hypothyroidism] Onset: 12-03-2014 12-03-2014 Chronic Unclassified (4 sources) Long-term drug therapy; Translations: [Other jail (current) drug therapy] Onset: 12-03-2014 12-03-2014 Past or Other Problems Problem Classification Problem Date Documented Da te Episodic/Chronic Allergic reactions (12 sources) Contact dermatitis due to poison nicole; Translations: [Allergic contact dermatitis due to plants, except food] Onset: 09-04-2016 09-04-2016 Episodic Other aftercare (4 sources) Other jail (current) drug therapy; Translations: [Other 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) drug therapy] Onset: 12-03-2014 12-03-2014 Episodic Other lower respiratory disease (8 sources) Dyspnea; Translations: [Shortness of breath] Onset: 12-10-2014 12-10-2014 Episodic Results Test Name Value Interpretation Reference Range Facil ity Vital Signs Date Time Vital Sign Value Performing Clinician Faci lity 11-21-2016 11:34-0400 BMI (Body Mass Index) 23.2 kg/m2 MD [facility] Work Phone: 11-21-2016 11:34-0400 BP Diastolic 60 mm[Hg] MD [facility] Work Phone: 11-21-2016 11:34-0400 BP Systolic 120 mm[Hg] MD [facility] Work Phone: 11-21-2016 11:34-0400 Height 154.94 cm Kurt Robertson MD [facility] Work Phone: 11-21-2016 11:34-0400 Pulse (Heart Rate) 52 /min Kurt Robertson MD [facility] Work Phone: 11-21-2016 11:34-0400 Respiratory Rate 20 /min Kurt Robertson MD [facility] Work Phone: 11-21-2016 11:34-0400 Weight 55.7 kg Kurt Robertson MD [facility] Work Phone: 11-21-2016 11:30-0400 Heart rate 52 /min Kurt Robertson MD [facility] Work Phone: 09-04-2016 06:39-0400 BMI (Body Mass Index) 22.71 kg/m2 Christie Soria LPN [facility] Work Phone: 09-04-2016 06:39-0400 Body Temperature 98.1 [degF] Christie Soria LPN [facility] Work Phone: 09-04-2016 06:39-0400 BP Diastolic 72 mm[Hg] Christie Soria LPN [facility] Work Phone: 09-04-2016 06:39-0400 BP Systolic 124 mm[Hg] Christie Soria LPN [facility] Work Phone: 09-04-2016 06:39-0400 Height 154.94 cm Christie Soria LPN [facility] Work Phone: 09-04-2016 06:39-0400 Pulse (Heart Rate) 60 /min Christie Soria LPN [facility] Work Phone: 09-04-2016 06:39-0400 Pulse Oximetry 98 % Christie Soria LPN [facility] Work Phone: 09-04-2016 06:39-0400 Respiratory Rate 14 /min Christie Soria LPN [facility] Work Phone: 09-04-2016 06:39-0400 Weight 54.52 kg Christie Soria LPN [facility] Work Phone: 08-31-2016 10:44-0400 Heart rate 51 /min Kat Chaparro [facility] Work Phone: 08-31-2016 10:32-0400 BMI (Body Mass Index) 22.73 kg/m2 [facility] Work Phone: 08-31-2016 10:32-0400 BP Diastolic 70 mm[Hg] Kat Chaparro [facility] Work Phone: 08-31-2016 10:32-0400 BP Systolic 130 mm[Hg] Kat Chaparro [facility] Work Phone: 08-31-2016 10:32-0400 Height 154.94 cm Kat Chaparro [facility] Work Phone: 08-31-2016 10:32-0400 Pulse (Heart Rate) 51 /min Kat Chaparro [facility] Work Phone: 08-31-2016 10:32-0400 Respiratory Rate 18 /min Kat Chaparro [facility] Work Phone: 08-31-2016 10:32-0400 Weight 54.57 kg Kat Chaparro [facility] Work Phone: 02-29-2016 11:08-0500 BMI (Body Mass Index) 23.43 kg/m2 [facility] Work Phone: 02-29-2016 11:08-0500 Body weight 56.25 kg Kat Chaparro [facility] Work Phone: 02-29-2016 11:08-0500 BP Diastolic 60 mm[Hg] Kat Chaparro [facility] Work Phone: 02-29-2016 11:08-0500 BP Systolic 140 mm[Hg] Kat [facility] Work Phone: 02-29-2016 11:08-0500 BSA (Body Surface Area) 1.54 m2 Kat [facility] Work Phone: 02-29-2016 11:08-0500 Pulse (Heart Rate) 52 /min [facility] Work Phone: 02-29-2016 11:08-0500 Respiratory Rate 20 /min Kat [facility] Work Phone: 07-02-2015 10:50-0400 Height 154.94 cm Kat [facility] Work Phone: Procedures Date Procedure Procedure Detail Performing Clinician Start: 11-21-2016 End: 11-21-2016 Electrocardiogram, mari Valle i, MD Start: 08-31-2016 End: 08-31-2016 REMI Robertson MD Start: 08-31-2016 End: 08-31-2016 Follow Up Appt 6 months Shabana Alcantar Start: 02-29-2016 End: 02-29-2016 Documentation of current medications Kat Chaparro Start: 02-29-2016 End: 02-29-2016 REMI Robertson MD Start: 02-29-2016 End: 02-29-2016 Follow Up Appt 6 months Shabana Alcantar Start: 08-31-2015 End: 08-31-2015 REMI Robertson MD Start: 08-31-2015 End: 08-31-2015 Follow Up Appt 6 months Shabana Alcantar Start: 07-20-2015 End: 07-20-2015 Electrocardiogram, mari Valle i, MD Start: 07-13-2015 End: 07-13-2015 Electrocardiogram, complete Kurt Valle i, MD Start: 07-02-2015 End: 07-02-2015 REMI Robertson MD Start: 07-02-2015 End: 07-06-2015 Electrocardiogram, complete Kurt Valle i, MD Start: 07-02-2015 End: 07-02-2015 Follow Up Appt 2 months Shabana Alcantar Start: 06-08-2015 End: 06-08-2015 [employer] Kurt Robertson MD Start: 06-08-2015 End: 06-08-2015 Follow Up Appt 1 month Kurt Robertson MD Start: 12-09-2014 End: 12-16-2014 Cardiovascular stress test using treadmill Kurt Robertson MD Start: 12-09-2014 End: 12-09-2014 [employer] Kurt Robertson MD Start: 12-09-2014 End: 12-10-2014 Documentation of current medications Kurt Robertson MD Start: 12-09-2014 End: 12-09-2014 Follow Up Appt 6 months Shabana Alcantar Plan of Treatment Date Care Activity Detail Author Start: 03-02-2017 End: 03-02-2017 Appointment Appointment [facility] Work Phone: Start: 11-21-2016 End: 11-21-2016 Appointment Appointment [facility] Work Phone: Start: 11-21-2016 End: 11-21-2016 [employer] REMI [facility] Work Phone: Start: 11-21-2016 End: 11-21-2016 Follow Up Appt 2 months Follow Up Appt 2 months [facility] Work Phone: Start: 09-04-2016 End: 09-04-2016 Appointment Appointment [facility] Work Phone: Start: 08-31-2016 End: 08-31-2016 Appointment Appointment [facility] Work Phone: Start: 08-31-2016 End: 08-31-2016 [employer] [facility] Work Phone: Start: 08-31-2016 End: 08-31-2016 Electrocardiogram, complete EKG (In office) [facility] Work Phone: Start: 08-31-2016 End: 08-31-2016 Follow Up Appt 6 months Follow Up Appt 6 months [facility] Work Phone: Start: 02-29-2016 End: 02-29-2016 [employer] [facility] Work Phone: Start: 02-29-2016 End: 02-29-2016 Follow Up Appt 6 months Follow Up Appt 6 months [facility] Work Phone: Start: 08-31-2015 End: 08-31-2015 [employer] [facility] Work Phone: Start: 08-31-2015 End: 08-31-2015 Follow Up Appt 6 months Follow Up Appt 6 months [facility] Work Phone: Start: 07-20-2015 End: 07-20-2015 Electrocardiogram, complete EKG (In office) [facility] Work Phone: Start: 07-13-2015 End: 07-13-2015 Electrocardiogram, complete EKG (In office) [facility] Work Phone: Start: 07-02-2015 End: 07-02-2015 [employer] [facility] Work Phone: Start: 07-02-2015 End: 07-06-2015 Electrocardiogram, complete EKG (In office) [facility] Work Phone: Start: 07-02-2015 End: 07-02-2015 Follow Up Appt 2 months Follow Up Appt 2 months [facility] Work Phone: Start: 06-08-2015 End: 06-08-2015 REMI KHALIL [facility] Work Phone: Start: 06-08-2015 End: 06-08-2015 Follow Up Appt 1 month Follow Up Appt 1 month [facility] Work Phone: Start: 12-09-2014 End: 12-09-2014 Cardiovascular stress test using treadmill Treadmill stress test (no imaging) [facility] Work Phone: Start: 12-09-2014 End: 12-09-2014 [employer] [facility] Work Phone: Start: 12-09-2014 End: 12-09-2014 Follow Up Appt 6 months Follow Up Appt 6 months [facility] Work Phone: Patient Education [facility] Work Phone: Additional Source Comments FOR RECORDS PERTAINING TO PATIENTS WHO ARE OR HAVE BEEN ENROLLED IN A CHEMICAL DEPENDENCY/SUBSTANCEABUSE PROGRAM, SOME INFORMATION MAY BE OMITTED. This clinical summary was aggregated from multiple sources. Caution should be exercised in using it in the provision of clinical care. This summary normalizes information from multiple sources, and as a consequence, information in this document may materially change the coding, format and clinical context of patient data. In addition, data may be omitted in some cases. CLINICAL DECISIONS SHOULD BE BASED ON THE PRIMARY CLINICAL RECORDS. [email or web address] [email or web address] provides no warranty or guarantee of the accuracy or completeness of information in this document.
== END | disposition home or self-care (01) ==
LOC: OPBI 07:06
PROVIDERS: PCP Family Medicine; Referring Provider Family Medicine; Visit Provider Family Medicine
DX: Z12.31 Encounter for screening mammogram for malignant neoplasm of breast (principal)
CPT/HCPCS: 77063; 77067

== ENCOUNTER → 2023-06-13 | Outpatient (CLI) | payer MEDICARE, SELFPAY ==
--- NOTE | 2023-06-13 11:35 | RAD_ITS ---
INDICATION: R rib pain EXAMINATION/TECHNIQUE: X-RAY - XR Ribs Unilateral Min 2 Views COMPARISON: No relevant prior comparison study available FINDINGS: SOFT TISSUES: No soft tissue swelling or gas. BONES: Displaced fractures of the posterior right sixth and seventh ribs. No sclerotic or destructive changes observed. VISUALIZED LUNGS: No pneumothorax. Blunting of the right costophrenic angle could be due to small right pleural effusion. RAD/Ribs Unil 2V No CXR IMPRESSION: 1. Fractures of the posterior right sixth and seventh ribs. 2. Small right pleural effusion. No evidence of pneumothorax Electronically Signed: Darian West MD at 12:08 EDT ,
== END | disposition home or self-care (01) ==
LOC: MTRAD 11:24
PROVIDERS: PCP Family Medicine; Referring Provider Physician Assistant Surgical; Visit Provider Physician Assistant Surgical
DX: S20.211A Contusion of right front wall of thorax, initial encounter (principal)
CPT/HCPCS: 71100

== ENCOUNTER → 2023-07-04 | Outpatient (CLI) | payer MEDICARE, SELFPAY ==
--- NOTE | 2023-07-04 10:27 | RAD_ITS ---
STUDY: X-RAY - UNILATERAL RIBS ( RIGHT ) REASON FOR EXAM: Female, 82 years old. R anterior/lateral. looking for callous so may return to exercis TECHNIQUE: 2 view(s) of the ribs. COMPARISON: 06/13/2023 FINDINGS: Healing fractures lateral right sixth, seventh, and eighth ribs. The visualized lung is clear and expanded. RAD/Ribs Unil 2V No CXR IMPRESSION: Healing fractures of the sixth seventh and eighth ribs. Electronically Signed: Sean Guzmán MD at 19:28 EDT ,
== END | disposition home or self-care (01) ==
PROVIDERS: PCP Family Medicine; Referring Provider Family Medicine; Visit Provider Family Medicine
DX: S22.31XA Fracture of one rib, right side, initial encounter for closed fracture (principal)
CPT/HCPCS: 71100

== ENCOUNTER → 2023-09-03 | Outpatient (CLI) | payer MEDICARE, SELFPAY ==
--- NOTE | 2023-09-03 10:46 | STRESSREP ---
Stress Test Report Exercise myocardial perfusion stress test. 83-year-old lady with a history of atrial fibrillation Stress protocol: Resting EKG demonstrates normal sinus rhythm with a rate of 65 bpm resting blood pressure is 122/60 mmHg. The patient exercised according to the regular Candido protocol for a total duration of 5 minutes attaining a maximum heart rate of 120 bpm which was 86% of maximum predicted heart rate; the maximum workload was 7 metabolic equivalents. At rest there were no ST or T wave changes noted to suggest ischemia and at peak exercise upsloping ST changes only were noted which did not meet the criteria for ischemia. No clinical angina was noted the test was terminated due to the target heart rate being achieved/fatigue. The peak blood pressure was 182/80 mmHg. Rate-pressure product was 14,800. Myocardial perfusion protocol. 11.2 mCi of technetium 99m sestamibi was injected at rest. The patient exercised according to regular Candido protocol for total duration of 5 minutes and at peak exercise 32.1 mCi of technetium 99m sestamibi was injected stress images were obtained stress and rest images were reconstructed in comparing the short axis vertical long and horizontal long axis. Gated images were also obtained. Perfusion SPECT analysis: Review of the stress images demonstrate normal uptake of tracer noted in all areas of the myocardium. The resting images similarly demonstrate normal uptake of tracer noted in all areas of the myocardium. No areas of reversibility are noted to suggest ischemia no previous infarct was noted. Gated SPECT analysis: The gated ejection fraction is over 80%. Conclusion: Normal exercise myocardial perfusion stress test at a moderate workload Preserved ejection fraction.
== END | disposition home or self-care (01) ==
PROVIDERS: PCP Family Medicine; Referring Provider Internal Medicine Cardiovascular Disease; Visit Provider Internal Medicine Cardiovascular Disease
DX: I48.0 Paroxysmal atrial fibrillation (principal); R94.31 Abnormal electrocardiogram [ECG] [EKG]
CPT/HCPCS: 78452; 93017; A9500

== ENCOUNTER → 2024-05-08 | Outpatient (CLI) | payer MEDICARE, SELFPAY ==
--- NOTE | 2024-05-08 12:52 | BD_ITS ---
PROCEDURE: DEXA BONE DENSITY STUDY REASON FOR EXAM: F, age 83 y/o . Postmenopausal. TECHNIQUE: DEXA scan of the lumbar spine and both hips. COMPARISON: Comparison is made with prior dated April 11, 2018. FINDINGS: Lumbar Spine (L1-L4): g/cm2 (1.007)/T-score (-0.4)/Z-score (2.4) findings are suggestive of normal with a low fracture risk. Left Femur Total: g/cm2 (0.804)/T-score (-1.1)/Z-score (1.1) Left Femoral Neck: g/cm2 (0.780)/T-score (-0.6)/Z-score (1.8) Right Femur Total: g/cm2 (0.800)/T-score (-1.2)/Z-score (1.0) Right Femoral Neck: g/cm2 (0.833)/T-score (-0.1)/Z-score (2.3) The T-Scores on the most recent prior examination were: Lumbar Spine (L1-L4): There has been improvement of bone density since the previous examination. Left Femur Total: Loss of 4.5%. Right Femur Total: Loss of 0.1%. BD/Dexa Bone Density Study IMPRESSION: The patient is considered osteopenia as outlined below according to World Matt Organization (WHO) criteria with a low fracture risk. There has been decrease of bone density since the previous examination. Reading Location: [facility]
== END | disposition home or self-care (01) ==
LOC: OPBD 12:51
PROVIDERS: PCP Family Medicine; Referring Provider Family Medicine; Visit Provider Family Medicine
DX: M85.80 Other specified disorders of bone density and structure, unspecified site (principal); Z78.0 Asymptomatic menopausal state
CPT/HCPCS: 77080

== ENCOUNTER → 2024-05-28 | Outpatient (CLI) | payer MEDICARE, SELFPAY ==
--- NOTE | 2024-05-28 13:06 | BI_ITS ---
PROCEDURE: SCRN MAMM (CAD)W/PATRIZIA BILAT REASON FOR EXAM: F, Age 83 y/o, remote left excisional breast biopsy as well as bilateral stereotactic breast biopsies. TECHNIQUE: Bilateral screening digital breast tomosynthesis with 2D and 3D images. Computer aided detection. COMPARISON: Prior exam(s) dating back to May 16, 2023.. FINDINGS: The breasts are heterogeneously dense which may obscure small masses. Stable examination. No suspicious masses, areas of developing architectural distortion, or suspicious calcifications. BI/SCRN MAMM (CAD)W/PATRIZIA BILAT IMPRESSION: BI-RADS 1: NEGATIVE. RECOMMEND ANNUAL MAMMOGRAPHIC SCREENING. Follow-up code: Routine Follow-up The patient will be notified of the results by letter. Reading Location: [id number]
== END | disposition home or self-care (01) ==
LOC: OPBI 13:05
PROVIDERS: PCP Family Medicine
DX: Z12.31 Encounter for screening mammogram for malignant neoplasm of breast (principal)
CPT/HCPCS: 77063; 77067

== ENCOUNTER → 2024-07-03 | Outpatient (CLI) | payer MEDICARE, SELFPAY ==
[2024-07-03 16:42] LABS: Anion Gap 11 (5-15); BUN 21 mg/dL (4-19); Calcium,Total 9.5 mg/dL (7.6-11.0); Carbon Dioxide 24.1 mmol/L (21.0-32.0); Chloride 107 mmol/L (98-108); Creatinine, Serum 0.79 mg/dL (0.70-1.20); EST Glomerular Filtration Rate 74 (>60); Glucose 103 mg/dL (70-99); Potassium 4.4 mmol/L (3.3-5.1); Sodium Level 142 mmol/L (133-145)
== END | disposition home or self-care (01) ==
LOC: LAB 15:24
PROVIDERS: PCP Family Medicine; Referring Provider Internal Medicine Cardiovascular Disease; Visit Provider Internal Medicine Cardiovascular Disease
DX: I48.0 Paroxysmal atrial fibrillation (principal)
CPT/HCPCS: 36415; 80048; 84443

== ENCOUNTER → 2024-08-01 | Outpatient (CLI) | payer MEDICARE, SELFPAY ==
--- NOTE | 2024-08-01 12:44 | ECHOD_ITS ---
Reason For Study Reason For Study: AFIB Procedure This was a 2D Doppler, Color Flow transthoracic echocardiogram. Exam performed in department. Left Ventricle Normal LV size. Left ventricular systolic function is normal. The left ventricular ejection fraction is 70 %. No regional wall motion abnormalities noted. Right Ventricle Normal RV size. Normal systolic function. Atria The left atrium is mildly enlarged. Normal right atrium. Mitral Valve There is moderate mitral annular calcification. Tricuspid Valve Normal tricuspid valve. Mild (1+) tricuspid valve insufficiency. Pulmonary artery systolic pressure is 35 mmHg. Aortic Valve Trisinus/trileaflet aortic valve. Mild (1+) aortic valve insufficiency. Pulmonic Valve Normal pulmonic valve. Great Vessels Mildly calcified aortic root. The sinus of valsalva is mildly calcified. 0.6 x 0.7 calcification noted at the sinus of Valsalva... appeared to be present on rior echo from 2020. The pulmonary artery is normal size. Normal inferior vena cava. Pericardium/Pleural No pericardial effusion. MMode/2D Measurements & Calculations LVIDd: 4.0 cm IVSd: 0.95 cm LVOT diam: 2.0 cm LVIDs: 2.4 cm LVPWd: 1.2 cm LVOT area: 3.2 cm2 FS: 39.0 % Ao root diam: 2.7 cm LAV(MOD-bp): 69.8 ml LVAd ap4: 20.9 cm2 LAV(MOD-bp) Indexed: 49.0 ml/m2 LVLd ap4: 6.1 cm LAV(MOD-sp2): 55.7 ml EDV(MOD-sp4): 57.9 ml LAV(MOD-sp4): 78.9 ml EDV(sp4-el): 61.1 ml LVAs ap4: 9.7 cm2 LVLs ap4: 4.9 cm ESV(MOD-sp4): 16.5 ml ESV(sp4-el): 16.3 ml EF(MOD-sp4): 71.5 % EF(sp4-el): 73.3 % SV(MOD-sp4): 41.4 ml SV(sp4-el): 44.8 ml LA A4 area: 24.6 cm2 SI(MOD-sp4): 29.1 ml/m2 LA dimension(2D): 4.2 cm RA A4 area: 12.9 cm2 Time Measurements MV dec time: 0.23 sec Doppler Measurements & Calculations MV E max chun: 83.3 cm/sec Lat Peak E' Chun: 6.7 cm/sec Med Peak E' Chun: 6.9 cm/sec MV A max chun: 83.3 cm/sec E/E' lat: 12.5 E/E' med: 12.1 MV E/A: 1.0 MV V2 max: 95.6 cm/sec Ao V2 max: 131.0 cm/sec MV max P.7 mmHg MV dec slope: 360.1 cm/sec2 Ao max P.9 mmHg MV V2 mean: 50.7 cm/sec Ao V2 mean: 88.9 cm/sec MV mean P.3 mmHg Ao mean P.7 mmHg MV V2 VTI: 40.9 cm Ao V2 VTI: 33.0 cm AV (velocity ratio): 0.83 MVA(VTI): 2.2 cm2 SRI(I,D): 2.7 cm2 SRI(V,D): 2.7 cm2 LV V1 max: 111.6 cm/sec SV(LVOT): 88.6 ml PA V2 max: 71.3 cm/sec LV V1 max P.0 mmHg PA V2 mean: 54.2 cm/sec LV V1 mean P.6 mmHg LV V1 mean: 73.7 cm/sec LV V1 VTI: 27.5 cm TR max chun: 281.9 cm/sec TR max P.8 mmHg ECHO/Echo Complete Interpretation Summary Normal LV size. Left ventricular systolic function is normal. The left ventricular ejection fraction is 70 %. Mild (1+) aortic valve insufficiency. The sinus of valsalva is mildly calcified. Ordering Physician: Kurt Robertson Referring Physician: Kurt Robertson Performed By: Ary King RCS
== END | disposition home or self-care (01) ==
LOC: CVS 12:44
PROVIDERS: PCP Family Medicine; Referring Provider Internal Medicine Cardiovascular Disease; Visit Provider Internal Medicine Cardiovascular Disease
DX: I48.0 Paroxysmal atrial fibrillation (principal)
CPT/HCPCS: 93306

== ENCOUNTER → 2024-10-01 | Outpatient (CLI) | payer MEDICARE, SELFPAY ==
[2024-10-01 15:23] LABS: Hematocrit 38.0 % (37-47); Hemoglobin 11.9 g/dL (12.0-15.0); Mean Corp Hgb Conc 31.3 g/dL (32-36); Mean Corpuscular Volume 98.7 fL (81-99); Mean Platelet Vol. 9.7 fl (6.2-12.0); Platelet Count 298 K/mm3 (150-450); RBC Distribution Width CV 12.9 % (11.6-14.6); RBC Distribution Width SD 46.2 fl (35.1-43.9); Red Blood Count 3.85 M/mm3 (4.2-5.4); White Blood Count 8.3 K/mm3 (4.4-11.0)
[2024-10-01 16:58] LABS: AST(SGOT) 32 U/L (<=31); Alanine Aminotransfer ALT/SGPT 22 U/L (<=34); Albumin, Serum 3.8 g/dL (3.4-4.8); Alkaline Phosphatase 56 U/L (35-104); Anion Gap 9 (5-15); BUN 26 mg/dL (4-19); BUN/Creat Ratio 32.1 RATIO (10-20); Calcium,Total 9.1 mg/dL (7.6-11.0); Carbon Dioxide 25.1 mmol/L (21.0-32.0); Chloride 106 mmol/L (98-108); Free T3 2.5 pg/mL (2.18-3.98); Globulin 2.1 g/dL (2.2-4.2); Glucose 112 mg/dL (70-99); Potassium 4.8 mmol/L (3.3-5.1)
== END | disposition home or self-care (01) ==
LOC: MFPLAB 11:32
PROVIDERS: PCP Family Medicine; Referring Provider Family Medicine; Visit Provider Family Medicine
DX: I48.91 Unspecified atrial fibrillation (principal); B35.1 Tinea unguium
CPT/HCPCS: 36415; 80053; 83036; 84439; 84443; 84481; 85027